=== PATIENT | female | born 1950 | race Caucasian/White ===

== ENCOUNTER → 2017-10-14 | Outpatient (CLI) | payer MEDICARE, BC ==
--- NOTE | 2017-10-18 08:10 | MM ---
Reason for exam: screening (asymptomatic). History: Patient is nulliparous. Family history of breast cancer in mother at age 84. Physical Findings: A clinical breast exam by your physician is recommended on an annual basis and results should be correlated with mammographic findings. MG 3D Screening Mammo W/Cad Bilateral CC and MLO view(s) were taken. The breast tissue is heterogeneously dense. This may lower the sensitivity of mammography. Asymmetric breast tissue in the left breast is stable. There is no discrete abnormality. Left skin lesion. ASSESSMENT: Benign, BI-RAD 2 RECOMMENDATION: Routine screening mammogram of both breasts in 1 year.
== END | disposition home or self-care (01) ==
LOC: RADMAMWWP 09:11
PROVIDERS: ATTEND Family Medicine
DX: Z12.31 Encounter for screening mammogram for malignant neoplasm of breast (principal)
CPT/HCPCS: 77063; 77067

== ENCOUNTER → 2018-11-27 | Outpatient (CLI) | payer MEDICARE, BC ==
--- NOTE | 2018-11-27 14:31 | MM ---
Reason for exam: screening (asymptomatic). Last mammogram was performed 1 year and 1 month ago. History: Patient is nulliparous. Family history of breast cancer in mother at age 84. Physical Findings: A clinical breast exam by your physician is recommended on an annual basis and results should be correlated with mammographic findings. MG 3D Screening Mammo W/Cad Bilateral CC and MLO view(s) were taken. Prior study comparison: October 14, 2017, bilateral MG 3d screening mammo w/cad. There are scattered fibroglandular densities. There is chronic nodularity in the left breast. No significant changes when compared with prior studies. ASSESSMENT: Benign, BI-RAD 2 RECOMMENDATION: Routine screening mammogram of both breasts in 1 year.
== END | disposition home or self-care (01) ==
LOC: RADMAMWWP 08:31
PROVIDERS: ATTEND Family Medicine
DX: Z12.31 Encounter for screening mammogram for malignant neoplasm of breast (principal)
CPT/HCPCS: 77063; 77067

== ENCOUNTER → 2020-01-25 | Outpatient (CLI) | payer MEDICARE, BC ==
--- NOTE | 2020-01-25 13:51 | BD ---
EXAMINATION TYPE: Axial Bone Density DATE OF EXAM: 01/25/2020 COMPARISON: NONE CLINICAL HISTORY: Postmenopausal female Height: 64 Weight: 218.2 FRAX RISK QUESTIONS: Alcohol (3 or more units per day): no Family History (Parent hip fracture): yes mother Glucocorticoids (More than 3mos): no (Ex: prednisone, prednisolone, methylprednisolone, dexamethasone, and hydrocortisone). History of Fracture in Adulthood: no Secondary Osteoporosis: 1. Type 1 Diabetes: no 2. Hyperthyroidism: no 3. Menopause before 45: no 4. Malnutrition: no 5. Chronic liver disease: no Rheumatoid Arthritis: no Current Tobacco Use: no RISK FACTORS HISTORY OF: Family History of Osteoporosis: no Active: yes Diet low in dairy products/other sources of calcium: yes Postmenopausal woman: hysterectomy 1991 Lost more than 2 inches in height since high school: no MEDICATIONS: blood pressure meds Thyroid Medications: thyroid How Lon years Additional History: EXAM MEASUREMENTS: Bone mineral densitometry was performed using the [employer] Ultrac[employer]) System. Bone mineral density as measured about the Lumbar spine is: ----- L1-L4(G/cm2): 1.464 T Score Values are as follows: ----- L2: 2.1 ----- L3: 3.6 ----- L4: 2.6 ----- L1-L4: 2.4 Bone mineral density : baseline Bone mineral density about the R hip (g/cm2): 0.808 Bone mineral density about the L hip (g/cm2): 0.786 T Score values are as follows: -----R Neck: -1.7 -----L Neck: -1.8 -----R Total: -1.0 -----L Total: -0.8 Bone mineral density : baseline IMPRESSION: Osteopenia (T Score between -2.5 and -1). There is slightly increased risk of fracture and the patient may be considered for treatment. Re-Screen 2-5 years. NOTE: T-SCORE=SD OF THE YOUNG ADULT MEAN.
== END | disposition home or self-care (01) ==
LOC: RADBDWWP 09:06
PROVIDERS: ATTEND Family Medicine
DX: M85.80 Other specified disorders of bone density and structure, unspecified site (principal)
CPT/HCPCS: 77080

== ENCOUNTER → 2020-11-17 | Outpatient (CLI) | payer MEDICARE, BC ==
--- NOTE | 2020-11-19 14:54 | MM ---
Reason for exam: screening (asymptomatic). Last mammogram was performed 2 years ago. History: Patient is postmenopausal and is nulliparous. Family history of breast cancer in mother at age 84. Took estrogen for 6 years. Physical Findings: A clinical breast exam by your physician is recommended on an annual basis and results should be correlated with mammographic findings. MG 3D Screening Mammo W/Cad Bilateral CC and MLO view(s) were taken. Prior study comparison: November 27, 2018, bilateral MG 3d screening mammo w/cad. October 14, 2017, bilateral MG 3d screening mammo w/cad. There are scattered fibroglandular densities. No significant changes when compared with prior studies. ASSESSMENT: Benign, BI-RAD 2 RECOMMENDATION: Routine screening mammogram of both breasts in 1 year.
== END | disposition home or self-care (01) ==
LOC: RADMAMWWP 07:52
PROVIDERS: ATTEND Family Medicine
DX: Z12.31 Encounter for screening mammogram for malignant neoplasm of breast (principal); Z78.0 Asymptomatic menopausal state; Z80.3 Family history of malignant neoplasm of breast
CPT/HCPCS: 77063; 77067

== ENCOUNTER 2021-03-30 10:14 | Emergency (ER) | payer MEDICARE, BC ==
--- NOTE | 2021-03-30 12:49 | ED ---
General Adult HPI - General Chief complaint: Recheck/Abnormal Lab/Rx Stated complaint: Covid, sent by PCP, Fever, cough Time Seen by Provider: 03/30/21 12:37 Source: patient, RN notes reviewed, old records reviewed Mode of arrival: ambulatory Limitations: no limitations - History of Present Illness Initial comments: 70-year-old female presenting for monoclonal antibody therapy. Patient tested positive for coronavirus on Tuesday. She's had symptoms for 5 days. She was vaccinated in June and July of this year. Patient is having mild respir atory symptoms, cough, fever, no significant dyspnea. She has a poor appetite but has been drinking well. She does have a pulse oximeter at home. - Related Data Previous Rx's Medication Instructions Recorded methylPREDNISolone Dose Pack 4 mg PO DIRECTED #21 packet 03/30/21 [Medrol Dose Pack] Review of Systems ROS Statement: Those systems with pertinent positive or pertinent negative responses have been documented in the HPI. ROS Other: All systems not noted in ROS Statement are negative. Past Medical History Past Medical History: Hypertension History of Any Multi-Drug Resistant Organisms: None Reported Past Surgical History: Hysterectomy, Orthopedic Surgery Past Psychological History: No Psychological Hx Reported Smoking Status: Never smoker Past Alcohol Use History: None Reported Past Drug Use History: None Reported General Exam Limitations: no limitations General appearance: alert, in no apparent distress Head exam: Present: atraumatic, normocephalic Eye exam: Present: normal appearance, PERRL ENT exam: Present: normal exam Neck exam: Present: normal inspection. Absent: tenderness, meningismus Respiratory exam: Present: normal lung sounds bilaterally. Absent: respiratory distress, wheezes Cardiovascular Exam: Present: regular rate, normal rhythm GI/Abdominal exam: Present: soft. Absent: distended, tenderness Extremities exam: Present: normal inspection, normal capillary refill. Absent: pedal edema Neurological exam: Present: alert, oriented X3, CN II-XII intact. Absent: motor sensory deficit Psychiatric exam: Present: normal affect, normal mood Skin exam: Present: warm, dry, intact. Absent: cyanosis, diaphoretic Course Vital Signs 03/30/21 12:28 Temperature 100.4 F H Pulse Rate 83 Respiratory 18 Rate Blood Pressure 166/88 O2 Sat by Pulse 96 Oximetry Medical Decision Making - Medical Decision Making 70-year-old female presenting for monoclonal antibody therapy. Patient well- appearing she is not hypoxic she has a low-grade fever. She is administered monoclonal antibodies in the emergency department. She is also prescribed short course of steroids. She is currently taking supplements including vitamin D, zinc, vitamin C. Return parameters discussed including monitoring pulse oximetry which she is able to do at home. Disposition Clinical Impression: COVID-19 Disposition: HOME SELF-CARE Condition: Good Instructions (If sedation given, give patient instructions): Coronavirus Disease 2019 (COVID-19) Prescriptions: methylPREDNISolone Dose Pack [Medrol Dose Pack] 4 mg PO DIRECTED #21 packet Is patient prescribed a controlled substance at d/c from ED?: No Referrals: Charu Pisano MD [Primary Care Provider] - 1-2 days
[2021-03-30 13:09] VITALS: BP 131/70; PULSE 75; RESP 20
[2021-03-30] MEDS ORDERED: CASIRIVIMAB (REGN10933) (EUA) 600 MG, IMDEVIMAB (REGN10987) (EUA) 600 MG in SODIUM CHLO... IVPB ONE (13:30)
[2021-03-30] MEDS ORDERED: SODIUM CHLORIDE 0.9% 50 ML IVPB ONE (14:00)
[2021-03-30 15:28] VITALS: TEMP 99.1
== END 2021-03-30 15:18 | disposition home or self-care (01) ==
LOC: EC 10:14
DX: U07.1 COVID-19 (principal); I10 Essential (primary) hypertension; Z90.710 Acquired absence of both cervix and uterus
CPT/HCPCS: 96361; 99283

== ENCOUNTER 2021-08-26 08:20 | Day surgery (SDC) | payer MEDICARE, BC ==
[2021-08-25 09:01] VITALS: BMI 36.6
[~2021-08-26 08:20] MED LIST: LIDOCAINE 1% (10MG/ML) FOR IV START INTRADERMA PRN
[2021-08-26 09:15] VITALS: TEMP 98.1
[2021-08-26] MEDS: LACTATED RINGERS 1,000 ML IV SCH ×2 (09:15→09:16)
[2021-08-26] MEDS ORDERED: PROPOFOL 10 MG/ML 20 ML VIAL IV ONE (10:32)
--- NOTE | 2021-08-26 10:53 | P.PCN ---
Date of Procedure: 08/26/21 Procedure(s) Performed: BRIEF HISTORY: Patient is a 70-year-old pleasant white female scheduled for an elective colonoscopy as a part of positive cologuard. PROCEDURE PERFORMED: Colonoscopy with biopsy. PREOPERATIVE DIAGNOSIS: Positive cologuard. IV sedation per Anesthesia. PROCEDURE: After informed consent was obtained, the patient, was brought into the endoscopy unit. IV sedation was administered by Anesthesia under continuous monitoring. Digital rectal examination was normal. Initially the Olympus CF-160 flexible video pediatric colonoscope was then inserted in the rectum, gradually advanced into the cecum with hvxa-bj-[id number] difficulty. Careful examination was performed as the scope was gradually being withdrawn. Ileocecal valve and the appendiceal orifice were visualized and appeared normal. Prep was good.. Mucosa of the cecum, ascending colon, transverse colon, descending colon, appeared normal. The sigmoid colon there was a 3 mm sessile polyp removed by cold biopsy. There were scattered sigmoid diverticulosis seen. Rest of the sigmoid colon, and rectum appeared normal. Retroflexion was performed in the rectum and no lesions were seen. The patient tolerated the procedure well. IMPRESSION: 3 mm sigmoid: Polyp status post cold biopsy Scattered sigmoid diverticulosis RECOMMENDATIONS: Findings of this examination were discussed with the patient as well as a her family. She was advised to follow with the biopsy results. If the biopsy results, she can have a repeat colonoscopy in 5 years.
[2021-08-26 11:03] VITALS: BP 144/72; PULSE 79
[2021-08-26 11:17] VITALS: RESP 16
== END 2021-08-26 11:40 | disposition home or self-care (01) ==
LOC: ORWHC2ENDO 08:20
PROVIDERS: ATTEND Internal Medicine Gastroenterology
DX: K63.5 Polyp of colon (principal); K57.30 Diverticulosis of large intestine without perforation or abscess without bleeding; I10 Essential (primary) hypertension; E07.9 Disorder of thyroid, unspecified; K21.9 Gastro-esophageal reflux disease without esophagitis; Z79.890 Hormone replacement therapy; Z79.899 Other long term (current) drug therapy
CPT/HCPCS: 88305; 45380; J2704

== ENCOUNTER 2022-02-24 17:52 | Emergency (ER) | payer MEDICARE, BC ==
[2022-02-24 18:03] VITALS: RESP 16; TEMP 97.5
[2022-02-24] MEDS ORDERED: LIDOCAINE 1% INJ 10MG/ML (20 ML MDV) SQ ONE (18:14)
[2022-02-24] MEDS ORDERED: DIPH,PERTUS(ACELL)TETVAC-LF 0.5 ML VIAL IM ONE (18:14)
--- NOTE | 2022-02-24 19:24 | ED ---
Wound/Laceration HPI - General Chief Complaint: Wound/Laceration Stated Complaint: finger lac Time Seen by Provider: 02/24/22 18:08 Source: patient Mode of arrival: ambulatory Limitations: no limitations - History of Present Illness Initial Comments: This is a 71-year-old female who presents with left pinky laceration. Patient states she was cutting a red bull and axilla cut her finger with a knife. Last tetanus unknown. Patient reports minimal pain. Denies numbness and tingling. - Related Data Home Medications Medication Instructions Recorded Confirmed Benazepril HCl 20 mg PO BID 08/25/21 08/26/21 Eye Vitamin 1 tab PO DAILY 08/25/21 08/26/21 Famotidine 20 mg PO BID 08/25/21 08/26/21 Fish Oil/Dha/Epa [Fish Oil 1,200 2 each PO QAM 08/25/21 08/26/21 mg Fish Oil] Levothyroxine Sodium [Synthroid] 175 mcg PO QAM 08/25/21 08/26/21 Multivitamins, Thera [Multivitamin 1 tab PO DAILY 08/25/21 08/26/21 (formulary)] clonazePAM 1 mg PO HS 08/25/21 08/26/21 Allergies Allergy/AdvReac Type Severity Reaction Status Date / Time No Known Allergies Allergy Verified 02/24/22 18:03 Review of Systems ROS Statement: Those systems with pertinent positive or pertinent negative responses have been documented in the HPI. ROS Other: All systems not noted in ROS Statement are negative. Past Medical History Past Medical History: GERD/Reflux, Hypertension, Thyroid Disorder History of Any Multi-Drug Resistant Organisms: None Reported Past Surgical History: Hysterectomy, Orthopedic Surgery Additional Past Surgical History / Comment(s): Bilateral partial knee replacements. Past Anesthesia/Blood Transfusion Reactions: No Reported Reaction Past Psychological History: No Psychological Hx Reported Smoking Status: Never smoker Past Alcohol Use History: Occasional Past Drug Use History: None Reported - Past Family History Mother Family Medical History: No Reported History General Exam Limitations: no limitations General appearance: alert Head exam: Present: atraumatic, normocephalic, normal inspection Respiratory exam: Present: normal lung sounds bilaterally. Absent: respiratory distress, wheezes, rales, rhonchi, stridor Cardiovascular Exam: Present: regular rate, normal rhythm, normal heart sounds. Absent: systolic murmur, diastolic murmur, rubs, gallop, clicks Extremities exam: Present: other (1 cm flap laceration over left pinky ) Neurological exam: Present: alert, oriented X3, CN II-XII intact Psychiatric exam: Present: normal affect, normal mood Skin exam: Present: warm, dry, intact, normal color. Absent: rash Course Vital Signs 02/24/22 02/24/22 18:01 19:58 Temperature 97.5 F L Pulse Rate 90 76 Respiratory 16 16 Rate Blood Pressure 149/62 124/68 O2 Sat by Pulse 96 98 Oximetry Procedures - Laceration Laceration #1 Indication: laceration Site: other (left pinkt) Description: flap Depth: simple, single layer Anesthetic Used: lidocaine 1% Anesthesia Technique: nerve block Pre-repair: wound explored, irrigated extensively Type of Sutures: nylon Size of Sutures: 5-0 Number of Sutures: 3 Technique: simple, interrupted Patient Tolerated Procedure: well, no complications Medical Decision Making - Medical Decision Making This is a 71-year-old female presents with laceration. Left pinky laceration well approximated with 3 sutures. Wound care instruction provided in detail. Tetanus updated. Dr. Jackson is my attending . Disposition Clinical Impression: Laceration Disposition: HOME SELF-CARE Condition: Good Instructions (If sedation given, give patient instructions): Care For Your Stitches (ED), Laceration (ED) Additional Instructions: Leave wound uncovered. Keep wound clean and dry. Wash with a mild soap. Take Tylenol or anti-inflammatories such as Motrin for pain. Follow-up with primary care provider in 1-2 days. Return for suture removal in 7-10 days. Report back to the emergency department if you experience new, concerning, or worsening symptoms. Is patient prescribed a controlled substance at d/c from ED?: No Referrals: Charu Pisano MD [Primary Care Provider] - 1-2 days Time of Disposition: 19:24
[2022-02-24 19:59] VITALS: BP 124/68; PULSE 76
== END 2022-02-24 19:57 | disposition home or self-care (01) ==
LOC: EC 17:52
DX: S61.217A Laceration without foreign body of left little finger without damage to nail, initial encounter (principal); K21.9 Gastro-esophageal reflux disease without esophagitis; I10 Essential (primary) hypertension; E07.9 Disorder of thyroid, unspecified; Z79.890 Hormone replacement therapy; Z79.899 Other long term (current) drug therapy; W26.0XXA Contact with knife, initial encounter
CPT/HCPCS: 12001; 90471; 99282; 90715; J2001

== ENCOUNTER 2022-06-13 15:14 | Inpatient (IN) | payer MEDICARE, BC ==
[2022-06-13] MEDS ORDERED: NITROGLYCERIN SL TABS 0.4 MG TAB SUBLINGUAL STA (15:21)
[2022-06-13] MEDS ORDERED: HEPARIN SODIUM 1,000 UN/ML (10ML VL) IV ONE (15:21)
--- NOTE | 2022-06-13 15:26 | ED ---
Chest Pain HPI - General Stated Complaint: Chest Pain Time Seen by Provider: 06/13/22 15:14 Source: patient, EMS, RN notes reviewed Mode of arrival: EMS - History of Present Illness Initial Comments: 71-year-old female with a history of hypertension but no prior history of heart disease or started developing chest pain this morning which got worse in the last 30 minutes or so prior to contact by EMS. Pain was 7/10 severity and burning going down the back of both arms and up into the neck. She was given 324 mg aspirin as well as nitroglycerin with some improvement. He does however state the pain is still raw 7 at this time. No shortness of breath fevers chills over nausea sweats or other symptoms no prior history of this. MD Complaint: chest pain - Related Data Home Medications Medication Instructions Recorded Confirmed Benazepril HCl 20 mg PO BID 08/25/21 06/13/22 Famotidine 20 mg PO BID 08/25/21 06/13/22 Levothyroxine Sodium [Synthroid] 175 mcg PO DAILY 08/25/21 06/13/22 clonazePAM 1 mg PO HS 08/25/21 06/13/22 Halobetasol Propionate [Ultravate 1 applic TOPICAL DAILY 06/13/22 06/13/22 0.05%] Ketoconazole 2% Cream [Nizoral 2%] 1 applic TOPICAL DAILY 06/13/22 06/13/22 Naproxen Sodium [Aleve] 220 mg PO DAILY 06/13/22 06/13/22 Sertraline [Zoloft] 50 mg PO DAILY 06/13/22 06/13/22 Allergies Allergy/AdvReac Type Severity Reaction Status Date / Time No Known Allergies Allergy Verified 06/13/22 18:31 Review of Systems ROS Statement: Those systems with pertinent positive or pertinent negative responses have been documented in the HPI. ROS Other: All systems not noted in ROS Statement are negative. EKG Findings - EKG Results: EKG: interpreted by HITESH, sinus rhythm (EKG interpreted by me upon admission to the emergency department sinus rhythm of 87 [place] interval 169 QRS duration 88 QT since QTC 356/[address] configuration) Past Medical History Past Medical History: GERD/Reflux, Hypertension, Thyroid Disorder History of Any Multi-Drug Resistant Organisms: None Reported Past Surgical History: Hysterectomy, Orthopedic Surgery Additional Past Surgical History / Comment(s): Bilateral partial knee replacements. Past Anesthesia/Blood Transfusion Reactions: No Reported Reaction Past Psychological History: No Psychological Hx Reported Smoking Status: Never smoker Past Alcohol Use History: Occasional Past Drug Use History: None Reported - Past Family History Mother Family Medical History: No Reported History General Exam - General Exam Comments Initial Comments: This is a well-developed well-nourished awake alert oriented 4 female General appearance: alert, anxious Head exam: Present: atraumatic, normocephalic, normal inspection Eye exam: Present: normal appearance, PERRL, EOMI. Absent: scleral icterus, conjunctival injection, periorbital swelling ENT exam: Present: normal exam, mucous membranes moist Neck exam: Present: normal inspection, full ROM, other (No stridor daily or bruits). Absent: tenderness, meningismus, lymphadenopathy Respiratory exam: Present: normal lung sounds bilaterally. Absent: respiratory distress, wheezes, rales, rhonchi, stridor Cardiovascular Exam: Present: regular rate, normal rhythm, normal heart sounds. Absent: systolic murmur, diastolic murmur, rubs, gallop, clicks GI/Abdominal exam: Present: soft, normal bowel sounds. Absent: distended, tenderness, guarding, rebound, rigid, bruit, pulsatile mass Extremities exam: Present: normal inspection, full ROM, normal capillary refill. Absent: tenderness, pedal edema, joint swelling, calf tenderness Back exam: Present: normal inspection Neurological exam: Present: alert, oriented X3, CN II-XII intact Psychiatric exam: Present: normal affect, normal mood Skin exam: Present: warm, dry, intact, normal color. Absent: rash Course Vital Signs 06/13/22 06/13/22 15:16 19:00 Temperature 98.3 F 98.4 F Pulse Rate 86 78 Respiratory 18 16 Rate Blood Pressure 170/92 146/71 O2 Sat by Pulse 97 97 Oximetry - Reevaluation(s) Reevaluation #1: 06/13/22 20:20 Reevaluation patient reveals no further pain at this time Chest Pain MDM - MDM Imaging interpreted by me shows no acute findings. This includes x-ray and CT to rule out pulmonary embolism. I did discuss findings with the patient family members were present patient presentation appears be consistent with new onset of unstable angina. Patient will be admitted with consultation by cardiology in the a.m. I did discuss case with Tomasa gallagher for Dr. Burciaga Was pt. sent in by a medical professional or institution (, PA, HISTOPATHOLOGY TECHNICIAN, urgent care, hospital, or usp...) When possible be specific @ -No Did you speak to anyone other than the patient for history (EMS, parent, family, police, friend...)? What history was obtained from this source @ -No Did you review nursing and triage notes (agree or disagree)? Why? @ Yes and agree-I reviewed and agree with nursing and triage notes Were old charts reviewed (outside hosp., previous admission, EMS record, old EKG, old radiological studies, urgent care reports/EKG's, usp records)? Report findings @ He has no old EKG records-No old charts were reviewed Differential Diagnosis (chest pain, altered mental status, abdominal pain women, abdominal pain men, vaginal bleeding, weakness, fever, dyspnea, syncope, headache, dizziness, GI bleed, back pain, seizure, CVA, palpatations, mental health)? @ Chest pain secondary to chest wall pain and pulmonary etiology ACLS-not applicable EKG interpreted by me (3pts min.). @ Yes -As above X-rays interpreted by me (1pt min.). @ Yes-None done CT interpreted by me (1pt min.). @ Yes-None done U/S interpreted by me (1pt. min.). @ -None done What testing was considered but not performed or refused? (CT, X-rays, U/S, labs)? Why? @ -None What meds were considered but not given or refused? Why? @ -None Did you discuss the management of the patient with other professionals (professionals i.e. , AYDE, HISTOPATHOLOGY TECHNICIAN, lab, RT, psych nurse, social service manager, instruction dean, teacher, money position officer, piano case and bench assembler)? Give summary @ Yes Sraa Scanlon covering for Dr. Martinez-No Was smoking cessation discussed for >3mins.? @ -No Was critical care preformed (if so, how long)? @ Yes 31 minutes-No Were there social determinants of health that impacted care today? How? (Homelessness, low income, unemployed, alcoholism, drug addiction, transportation, low edu. Level, literacy, decrease access to med. care, care home, rehab)? @ -No Was there de-escalation of care discussed even if they declined (Discuss DNR or withdrawal of care, Hospice)? DNR status @ -No What co-morbidities impacted this encounter? (DM, HTN, Smoking, COPD, CAD, Cancer, CVA, ARF, Chemo, Hep., AIDS, mental health diagnosis, sleep apnea, morbid obesity)? @ -None Was patient admitted / discharged? Hospital course, mention meds given and route, prescriptions, significant lab abnormalities, going to OR and other pertinent info. @ Patient was admitted-hospital course Undiagnosed new problem with uncertain prognosis? @ -No Drug Therapy requiring intensive monitoring for toxicity (Heparin, Nitro, Insulin, Cardizem)? @ Heparin, nitroglycerin - Were any procedures done? @ -No Diagnosis/symptom? @ Unstable angina, chest pain-default Acute, or Chronic, or Acute on Chronic? @ -default Uncomplicated (without systemic symptoms) or Complicated (systemic symptoms)? @ -default Side effects of treatment? @ -No Exacerbation, Progression, or Severe Exacerbation? @ -No Poses a threat to life or bodily function? How? (Chest pain, [place], MS, pneumonia, PE, COPD, DKA, ARF, appy, cholecystitis, CVA, Diverticulitis, Homicidal, Suicidal, threat to staff... and all critical care pts) @ Potential if not further evaluated and treated -n. Critical Care Time Critical Care Time: Yes Total Critical Care Time: 31 Critical Care Time: Critical care time includes initial presentation with history physical discussed with paramedics on arrival multiple repeat evaluations the patient discussed with patient and family and several occasions discussion with the admitting service admission orders and documentation of the above Disposition Clinical Impression: Chest pain, Unstable angina pectoris Disposition: ADMITTED IP TO THIS HOSP Condition: Fair Referrals: Charu Pisano MD [Primary Care Provider] - 1-2 days Decision Date: 06/13/22 Decision Time: 20:00
[2022-06-13] MEDS ORDERED: HEPARIN SOD,PORK IN 0.45% NACL 25,000 UNIT in 0.45% NACL 1 250ML.BAG IV SCH (15:30)
--- NOTE | 2022-06-13 16:21 | XR ---
EXAMINATION TYPE: XR chest 2V DATE OF EXAM: 06/13/2022 4:14 PM COMPARISON: None. TECHNIQUE: XR chest 2V . CLINICAL INDICATION:Female, 71 years old with history of Chest Pain; FINDINGS: Lungs/Pleura: There is no evidence of pleural effusion, focal consolidation, or pneumothorax. Pulmonary vascularity: Unremarkable. Heart/mediastinum: Cardiomediastinal silhouette is unremarkable. Musculoskeletal: Multiple level degenerative disc disease changes seen throughout the spine. No acute osseous abnormalities. IMPRESSION: No acute cardiopulmonary disease/process.
[2022-06-13 16:37] LABS: Basophils # (A) 0.1 k/uL (0-0.2); Basophils % (A) 1 %; Eosinophils # (A) 0.4 k/uL (0-0.7); Eosinophils % (A) 4 %; HCT 40.5 % (34.0-46.0); HGB 13.8 gm/dL (11.4-16.0); Lymphocytes # (A) 1.3 k/uL (1.0-4.8); Lymphocytes % (A) 16 %; MCH 33.2 pg (25.0-35.0); MCV 97.4 fL (80.0-100.0); Mean Platelet Volume 8.7; Monocytes # (A) 0.5 k/uL (0-1.0); Monocytes % (A) 7 %; Neutrophils # (A) 5.6 k/uL (1.3-7.7); Neutrophils % (A) 70 %; Platelet Count 256 k/uL (150-450); RBC 4.16 m/uL (3.80-5.40); RDW 12.3 % (11.5-15.5); WBC 7.9 k/uL (3.8-10.6)
[2022-06-13 16:47] LABS: Albumin 4.1 g/dL (3.5-5.0); Calcium 8.7 mg/dL (8.4-10.2); Total Bilirubin 0.6 mg/dL (0.2-1.3)
[2022-06-13 16:51] LABS: Magnesium 1.9 mg/dL (1.6-2.3); Potassium 4.7 mmol/L (3.5-5.1)
[2022-06-13 17:17] LABS: INR 0.9 (<1.2); Partial Thromboplastin Time 24.8 sec (22.0-30.0); Prothrombin Time 9.8 sec (9.0-12.0)
[2022-06-13] MEDS ORDERED: SODIUM CHLORIDE 0.9% 1,000 ML IV STA (17:47)
--- NOTE | 2022-06-13 20:00 | CT ---
EXAMINATION TYPE: CT angio chest CT DLP: 536.4 mGycm, Automated exposure control for dose reduction was used. DATE OF EXAM: 06/13/2022 7:27 PM COMPARISON: Chest radiograph from same day. CLINICAL INDICATION:Female, 71 years old with history of PE suspected; Chest pain. Bilateral arm Pain . PE suspected. TECHNIQUE/CONTRAST: CTA scan of the thorax is performed with IV Contrast, patient injected with 80cc mL of Isovue 370, pu lmonary embolism protocol. MIP images are created and reviewed. FINDINGS: Pulmonary Artery: There is no evidence for a filling defect within the pulmonary vasculature to sugge st acute pulmonary embolism. The pulmonary artery is of normal size. Lungs/Pleura: No evidence of focal consolidation, pleural effusion or pneumothorax. Left basilar atel ectasis. Airway: Large airways are patent. Heart: Heart is within normal limits for size.. Vasculature: Mild atherosclerotic calcifications are present throughout the aorta and its branches. Mediastinum: No gross evidence of adenopathy. Musculoskeletal: Mild degenerative disc disease changes are present throughout the thoracolumbar spin e. Mild degenerative changes of the lower cervical spine. Soft Tissues: Unremarkable. Lower neck: No significant findings. Upper Abdomen: Hepatic steatosis. Nonobstructing left renal calculi. Colonic diverticulosis.. IMPRESSION: 1. No evidence of pulmonary embolism. 2. No acute cardiopulmonary process. 3. Additional incidental findings as detailed above.
[2022-06-13] MEDS ORDERED: NITROGLYCERIN SL TABS 0.4 MG TAB SUBLINGUAL PRN (20:25)
[2022-06-13] MEDS: clonazePAM 1 MG TAB PO SCH (21:49)
[2022-06-13] MEDS: FAMOTIDINE 20 MG TAB PO SCH (21:49)
[2022-06-14] MEDS: NITROGLYCERIN OINT 1 INCH/GM PACKET TOPICAL SCH ×2 (00:24→05:35)
[2022-06-14] MEDS ORDERED: NITROGLYCERIN OINT 1 INCH/GM PACKET TOPICAL STA (01:10)
[2022-06-14] MEDS: METOPROLOL TARTRATE 25 MG TAB PO SCH ×3 (01:26→21:05)
[2022-06-14] MEDS: MORPHINE SULFATE 2 MG/ML SYRINGE IVP PRN ×2 (02:34→06:40)
[2022-06-14] MEDS ORDERED: HEPARIN SODIUM 1,000 UN/ML (10ML VL) IV PRN (05:20)
[2022-06-14] MEDS: LEVOTHYROXINE 88 MCG TAB PO SCH (05:35)
[2022-06-14] MEDS ORDERED: HEPARIN SODIUM,PORCINE 2,500 UNIT in SODIUM CHLORIDE 0.9% 250 ML IRRIGATION PRN (07:00)
[2022-06-14] MEDS ORDERED: HEPARIN SODIUM,PORCINE 10,000 UNIT in SODIUM CHLORIDE 0.9% 1,000 ML IRRIGATION PRN (07:00)
[2022-06-14] MEDS ORDERED: ASPIRIN 325 MG TAB PO STA (08:45)
[2022-06-14] MEDS ORDERED: ALPRAZolam 0.5 MG TAB PO PRN (08:45)
[2022-06-14] MEDS ORDERED: ATORVASTATIN 80 MG TAB PO STA (08:45)
[2022-06-14] MEDS ORDERED: NITROGLYCERIN SL TABS 0.4 MG TAB SUBLINGUAL PRN ×2 (08:45→10:24)
[2022-06-14] MEDS ORDERED: ALPRAZolam 0.25 MG TAB PO PRN (08:45)
[2022-06-14] MEDS ORDERED: SODIUM CHLORIDE 0.9% 500 ML 200 ML IV ONE (08:47)
[2022-06-14] MEDS ORDERED: NAPROXEN 250 MG TAB PO SCH (09:00)
[2022-06-14] MEDS ORDERED: lisinopriL 20 MG TAB PO SCH (09:00)
[2022-06-14] MEDS ORDERED: ASPIRIN 325 MG TAB PO SCH (09:00)
[2022-06-14 09:02] LABS: Chol/HDL Ratio 4.12 Ratio; LDL Cholesterol,Calculated 136.6 mg/dL (0.0-131.0)
[2022-06-14] MEDS: MIDAZOLAM 2 MG/2 ML VIAL IVP ONE ×2 (09:30→09:36)
[2022-06-14] MEDS ORDERED: SODIUM CHLORIDE 0.9% 1,000 ML IV ONE (09:30)
[2022-06-14] MEDS ORDERED: LIDOCAINE 1% INJ 10MG/ML (5 ML VIAL-PF) SQ ONE (09:34)
[2022-06-14] MEDS ORDERED: VERAPAMIL SYRINGE (5 MG/10 ML) INTRAARTER ONE (09:35)
[2022-06-14] MEDS ORDERED: fentaNYL (PF) 50 MCG/ML 2 ML AMP IVP ONE (09:42)
[2022-06-14] MEDS: HEPARIN SODIUM 1,000 UN/ML (10ML VL) IVP ONE ×2 (09:55→10:14)
[2022-06-14] MEDS ORDERED: TICAGRELOR 90 MG TAB PO ONE (10:13)
[2022-06-14] MEDS ORDERED: NITROGLYCERIN 1000MCG/10ML SYRINGE INTRAARTER ONE (10:15)
[2022-06-14] MEDS ORDERED: IOPAMIDOL-370 125ML BTL INJ ONE (10:16)
[2022-06-14] MEDS ORDERED: IOPAMIDOL-370 100ML BTL INJ ONE (10:20)
[2022-06-14] MEDS ORDERED: ATROPINE SULFATE 0.1 MG/ML 10ML SYRINGE IV PRN (10:24)
[2022-06-14] MEDS ORDERED: RX INFO: IV CONTRAST WAS GIVEN 1 EACH MISC MISCELLANE PRN (10:24)
[2022-06-14] MEDS ORDERED: ZOLPIDEM 5 MG TAB PO PRN (10:24)
[2022-06-14] MEDS ORDERED: MAG HYDROX/AL HYDROX/SIMETH 30 ML CUP PO PRN (10:24)
[2022-06-14] MEDS: SODIUM CHLORIDE 0.9% 1,000 ML in EMPTY BAG 1 BAG IV SCH ×2 (11:00→21:03)
[2022-06-14] MEDS: SERTRALINE 50 MG TAB PO SCH (11:01)
--- NOTE | 2022-06-14 13:10 | CONS ---
CONSULTATION HISTORY OF PRESENT ILLNESS: Ms. Vaughn is a 71-year-old lady, has a history of hypertension and hypothyroidism. She takes benazepril 20 mg b.i.d. and Synthroid 175 mcg _daily____. She is not a smoker, has no diabetes, and cholesterol status is unknown. She came into the hospital around 3 p.m. yesterday complaining of chest pressure that seemed to be midsternal, and this was coming and going, was very waxing and waning for at least 24 hours prior to her presentation to the ER. She had a prolonged discomfort in the chest, came into the emergency room. Initial troponin was normal. She was placed on heparin and nitroglycerin paste. Subsequent troponins have gone up. Her chest pain has improved, but this morning again, she had chest tightness and pressure, and EKG revealed precordial ST-T wave changes suggestive of an anterior hhj-WV-[id number] TN. At the time of my evaluation, she is resting comfortably and had mild chest discomfort, probably 15 to 20 minutes ago, and precordial ST changes were noted with elevated troponin suggestive of a [id number]-HB-bfbllhqek TN. PAST MEDICAL HISTORY: 1. Hypertension. 2. Hypothyroidism. 3. Status post orthopedic surgery and hysterectomy. 4. She has bilateral partial knee arthroplasty done. MEDICATIONS AT HOME: Include: 1. Synthroid 175 mcg _daily____. 2. Benazepril 20 mg b.i.d. 3. She also takes some Zoloft. ALLERGIES: No known drug allergies. PHYSICAL EXAMINATION: VITAL SIGNS: Blood pressure is 148/70. Pulse rate is about 70 per minute. HEENT: Unremarkable. Fundus was not examined. NECK: Supple. No JVD. I do not hear a carotid bruit. HEART: Reveals S1 and S2 heard normally. No significant murmurs. LUNGS: Reveal bilateral decent air entry. ABDOMEN: Soft and nontender. EXTREMITIES: Lower extremities reveal palpable pulses. No edema. CENTRAL NERVOUS SYSTEM: Normal. LABORATORY DATA: EKG this morning revealed a sinus mechanism with anterior ST and T-wave changes. Laboratory data reveal a creatinine of 1.24. D-dimer of 0.61. The troponin went up from 0.02 to 6.7 this morning. Her BNP is normal. Her LDL cholesterol is 136. She had a CT angiogram of the chest because of elevated D-dimer, which was unremarkable for pulmonary embolism. RECOMMENDATIONS: I am recommending that we continue heparin, hydrate her, and proceed with coronary angiography and based on finding intervention. The rationale for coronary angiography and PCI was explained to the patient in detail. She wants me to talk to her sister after the procedure. She understands the risks, benefits, options, and rationale and wishes to proceed with the procedure. She is already on beta-blockers, heparin, and nitro paste. MMODL / IJN: [id number] / OSORIO
--- NOTE | 2022-06-14 13:49 | CC ---
CARDIAC CATHETERIZATION REPORT PROCEDURES PERFORMED: 1. Coronary angiography. 2. Percutaneous transluminal coronary angioplasty and stenting of a totally-occluded mid left anterior descending performed in the setting of a pud-BO-[id number] myocardial infarction. PERFORMED BY: Dr. Betty Liu. Moderate conscious sedation time was 46 minutes. The patient was administered Versed. Oxygen saturation, hemodynamics, and EKG were monitored closely. CLINICAL INFORMATION: Ms. Alba Vaughn is a 71-year-old lady with a history of hypertension and hypothyroidism, came into the hospital with chest pain, had troponin elevation and EKG changes in the anterior leads, suggestive of anterior pmv-TQ-jjuiawhhj DC. She was advised prompt cardiac catheterization. Risks, benefits, options, and rationale were explained. PROCEDURE NOTE: Under local anesthesia and strict aseptic precautions, a 6-[place] introducer was placed in the right radial artery. I used a JR4 catheter to perform selective coronary angiography of the right coronary artery. I could not cross the aortic valve. I used a 3.5 curved left Nba 6-[place] guide catheter to perform catheterization and PCI of the left system. Following coronary angiography, I proceeded to perform PCI of LAD. Following the PCI, I took the sheath out and placed a TR band. Saturation in the fingers of the right hand was 93%. The patient tolerated the procedure well without complication. She received 180 mg of Brilinta and also 4000 units of heparin. ACT was 251, and additional 1000 units of heparin was given, a total of 4000. The patient will be on aspirin and Brilinta without interruption for 1 year. CORONARY ANGIOGRAPHY FINDINGS: RIGHT CORONARY ARTERY: Large dominant vessel, no significant disease, supplies a sizable amount of myocardium. Distally bifurcates into a large PDA and PLV, both of which have minor irregularities, no significant disease. LEFT MAIN CORONARY ARTERY: Short, patent vessel, free of significant disease, bifurcates into LAD and circumflex. LEFT ANTERIOR DESCENDING CORONARY ARTERY: This vessel is totally occluded after a small septal and a diagonal branch. 100% occlusion, culprit vessel. LEFT POSTERIOR CIRCUMFLEX CORONARY ARTERY: Nondominant vessel, gives off a single obtuse marginal and a secondary branch, has minor irregularities, no significant disease. LV-gram was not performed. FINAL IMPRESSION: This patient has a right-dominant system, total occlusion of mid left anterior descending after septal and diagonal branch. No significant disease in the circumflex or right coronary artery. RECOMMENDATIONS: PCI of mid LAD performed expeditiously. PCI PROCEDURE: I used a JL3.5 guide catheter and a Runthrough wire. I crossed the lesion and used a 2.5 NC Trek balloon to pre-dilate the lesion. I deployed a 3.5-caliber 15-mm long Xience stent. Excellent angiographic result was achieved without complication. The sheath was taken out, and TR band was applied as per protocol. The patient was sent to the room in stable condition. She received 180 mg of Brilinta and also intravenous heparin, and ACT was kept between 250 and 300. Excellent angiographic result was achieved. Details were discussed with the patient and family, and she was sent to the room in a stable condition. MMODL / IJN: [id number] /
--- NOTE | 2022-06-14 14:31 | P.HPIM ---
History of Present Illness H&P Date: 06/14/22 This is a pleasant 71-year-old female who presented to the emergency department with feelings of chest pain that had been ongoing and radiating down both upper extremities and also into her neck and called EMS for further evaluation. Patient was given aspirin and nitroglycerin and reported having some improvement in her chest pain. Patient denied any feelings of dizziness, lightheadedness, nausea or vomiting. Patient follows with Dr. Charu sexton in the outpatient setting with a past medical history of GERD, hypertension, thyroid. Patient reports she drinks wine almost daily and denies other illicit drug use or smoking. Chest x-ray in the ER showed no acute cardiopulmonary process. Tc daniel also underwent CTA showing no evidence of PE and no acute cardiopulmonary process as her d-dimer initially was mildly elevated at 0.61. Patient was placed on IV heparin and admitted for cardiology consultation in the a.m. Labs reviewed on admission showing a WBC of 7.9, hemoglobin is 13.8, platelets 256, sodium 137, potassium 4.7, creatinine 1.24, magnesium 1.9, initial troponin 0.027 with repeat troponin coming back elevated at 2.75 and third troponin was 6.72, BNP was 354, cholesterol panel reveals hyperlipidemia, lipase is 167. EKG showed normal sinus rhythm. Review Of Systems: Constitutional: No fever, no chills, no night sweats. No weight change. No weakness, fatigue or lethargy. No daytime sleepiness. EENT: No headache. No blurred vision or double vision, no loss of vision. No loss of Hearing, no ringing in the ears, no dizziness. No nasal drainage or congestion. No epistaxis. No sore throat. Lungs: No shortness of breath, cough, no sputum production. No wheezing. Cardiovascular: Reported chest pain, no lower extremity edema. No palpitations. No paroxysmal nocturnal dyspnea. No orthopnea. No lightheadedness or dizziness. No syncopal episodes. Reported bilateral upper arm pain and discomfort post symptoms of chest pain Abdominal: No abdominal pain. No nausea, vomiting. No diarrhea. No constipation. No bloody or tarry stools.. No loss of appetite. Genitourinary: No dysuria, increased frequency, urgency. No urinary retention. Musculoskeletal: No myalgias. No muscle weakness, no gait dysfunction, no frequent falls. No back pain. No neck pain. Integumentary: No wounds, no lesions. No rash or pruritus. No unusual bruising. No change in hair or nails. Neurologic: No aphasia. No facial droop. No change in mentation. No head injury. No headache. No paralysis. No paresthesia. Psychiatric: No depression. No anxiety. No mood swings. Endocrine: No abnormal blood sugars. No weight change. No excessive sweating or thirst. No cold intolerance. PHYSICAL EXAMINATION: GENERAL: The patient is alert and oriented x4, Well developed, well nourished. Obese HEENT: Pupils are round and equally reacting to light. EOMI. no scleral icterus. No conjunctival pallor. Normocephalic, atraumatic. No pharyngeal erythema. No thyromegaly. CARDIOVASCULAR: S1 and S2 muffled PULMONARY: diminished breath sounds bilaterally with no wheezing or rhonchi noted. ABDOMEN: soft. Nontender on exam. obese. non-distended, normoactive bowel soun ds. No palpable organomegaly. MUSCULOSKELETAL: No joint swelling or deformity. EXTREMITIES: No cyanosis, clubbing, or pedal edema. NEUROLOGICAL: Gross neurological examination did not reveal any focal deficits. SKIN: No rashes. Assessment: Chest pain, NSTEMI Status post stenting to the LAD Gastroesophageal reflux disease Elevated d-dimer with no evidence of PE on CTA Mild acute kidney injury, likely prerenal Hypertension history Hypothyroidism Hyperlipidemia Obesity with a body mass index of 35.3 GI prophylaxis DVT prophylaxis Full code Plan: Recommend to continue with current medications and management with cardiology following Patient had elevated troponins that were trending up and patient was maintained on telemetry with continued cardiac symptoms with cardiology following and underwent cardiac catheterization this morning and is post stenting to the mid LAD the 100% occlusion Patient is on bed rest at this time and underwent right radial approach to continue with protocol Recommend continue telemetry monitoring and will follow-up with repeat labs Continue current medications per cardiology recommendations and will discuss with cardiology about possible discharge planning in the next 24-48 hours Diet to be resumed and will follow-up with repeat labs Due to multiple complex medical issues, prognosis is guarded. Possible discharge in 24 hours. The impression and plan of care has been dictated by Fernanda Diego, nurse practitioner as directed. Dr. Anthony MD I have performed a history and examination and MDM of this patient, discussed the same with the dictator, and agree with the dictator's assessment and plan as written ,documented as a scribe. Based on total visit time, I have performed more than 50% of the visit. Any additional findings or plans will be noted. Past Medical History Past Medical History: GERD/Reflux, Hypertension, Thyroid Disorder History of Any Multi-Drug Resistant Organisms: None Reported Past Surgical History: Hysterectomy, Orthopedic Surgery Additional Past Surgical History / Comment(s): Bilateral partial knee replacements. Past Anesthesia/Blood Transfusion Reactions: No Reported Reaction Past Psychological History: No Psychological Hx Reported Smoking Status: Never smoker Past Alcohol Use History: Occasional Past Drug Use History: None Reported - Past Family History Mother Family Medical History: No Reported History Medications and Allergies Home Medications Medication Instructions Recorded Confirmed Type Benazepril HCl 20 mg PO BID 08/25/21 06/13/22 History Famotidine 20 mg PO BID 08/25/21 06/13/22 History Levothyroxine Sodium [Synthroid] 175 mcg PO DAILY 08/25/21 06/13/22 History clonazePAM 1 mg PO HS 08/25/21 06/13/22 History Halobetasol Propionate [Ultravate 1 applic TOPICAL DAILY 06/13/22 06/13/22 History 0.05%] Ketoconazole 2% Cream [Nizoral 2%] 1 applic TOPICAL DAILY 06/13/22 06/13/22 History Naproxen Sodium [Aleve] 220 mg PO DAILY 06/13/22 06/13/22 History Sertraline [Zoloft] 50 mg PO DAILY 06/13/22 06/13/22 History Allergies Allergy/AdvReac Type Severity Reaction Status Date / Time No Known Allergies Allergy Verified 06/13/22 18:31 Physical Exam Vitals: Vital Signs Temp Pulse Pulse Resp BP BP Pulse Ox 06/14/22 07:11 98 06/14/22 07:00 97.6 F 60 18 147/83 99 06/14/22 00:23 98.2 F 78 18 156/82 98 06/13/22 21:28 98.1 F 93 18 171/83 98 06/13/22 21:00 98.2 F 70 17 144/75 95 06/13/22 19:00 98.4 F 78 16 146/71 97 06/13/22 15:16 98.3 F 86 18 170/92 97 Intake and Output 06/13/22 06/14/22 06/14/22 22:59 06:59 14:59 Intake Total 119.767 Balance 119.767 Intake: Intake, IV Titration 119.767 Amount Heparin Sod,Pork in 0.45% 119.767 NaCl 25,000 unit In 0.45 % NaCl 1 250ml.bag @ 10. 399 UNITS/KG/HR 10 mls/hr IV .Q24H ELIZABETH Rx#: [id number] Other: # Voids 3 Weight 96.162 kg Results CBC & Chem 7: 06/13/22 15:25 06/13/22 15:25 Labs: Abnormal Lab Results - Last 24 Hours (Table) 06/13/22 06/13/22 06/13/22 Range/Units 15:25 15:25 22:53 APTT 71.9 H (22.0-30.0) sec D-Dimer 0.61 H (<0.60) mg/L FEU BUN 23 H (7-17) mg/dL Creatinine 1.24 H (0.52-1.04) mg/dL Glucose 114 H (74-99) mg/dL Troponin I (0.000-0.034) ng/mL Triglycerides (0.00-149.00) mg/dL Cholesterol (0.00-200.00) mg/dL LDL Cholesterol, Calc (0.0-131.0) mg/dL 06/13/22 06/14/22 06/14/22 Range/Units 22:53 03:20 03:20 APTT (22.0-30.0) sec D-Dimer (<0.60) mg/L FEU BUN (7-17) mg/dL Creatinine (0.52-1.04) mg/dL Glucose (74-99) mg/dL Troponin I 2.750 H* 6.720 H* (0.000-0.034) ng/mL Triglycerides 169.00 H (0.00-149.00) mg/dL Cholesterol 225.00 H (0.00-200.00) mg/dL LDL Cholesterol, Calc 136.6 H (0.0-131.0) mg/dL 06/14/22 Range/Units 03:20 APTT 43.4 H (22.0-30.0) sec D-Dimer (<0.60) mg/L FEU BUN (7-17) mg/dL Creatinine (0.52-1.04) mg/dL Glucose (74-99) mg/dL Troponin I (0.000-0.034) ng/mL Triglycerides (0.00-149.00) mg/dL Cholesterol (0.00-200.00) mg/dL LDL Cholesterol, Calc (0.0-131.0) mg/dL Thrombosis Risk Factor Assmnt - DVT/VTE Prophylaxis DVT/VTE Prophylaxis: Pharmacologic Prophylaxis ordered - Choose All That Apply Any of the Below Risk Factors Present?: Yes Each Factor Represents 1 point: Obesity (BMI >25) Other Risk Factors: Yes Each Risk Factor Represents 2 Points: Age 61-74 years Other congenital or acquired thrombophilia - If yes, enter type in comment: No Thrombosis Risk Factor Assessment Total Risk Factor Score: 3 Thrombosis Risk Factor Assessment Level: Moderate Risk Assessment and Plan Time with Patient: Greater than 30
[2022-06-14] MEDS: ATORVASTATIN 80 MG TAB PO SCH (21:01)
[2022-06-14] MEDS: FAMOTIDINE 20 MG TAB PO SCH (21:01)
[2022-06-14] MEDS: clonazePAM 1 MG TAB PO SCH (21:01)
[2022-06-14] MEDS: lisinopriL 10 MG TAB PO SCH (21:05)
[2022-06-15] MEDS: LEVOTHYROXINE 88 MCG TAB PO SCH (06:32)
[2022-06-15 06:39] LABS: Basophils # (A) 0.1 k/uL (0-0.2); Basophils % (A) 1 %; Eosinophils # (A) 0.3 k/uL (0-0.7); Eosinophils % (A) 3 %; HCT 36.4 % (34.0-46.0); HGB 12.2 gm/dL (11.4-16.0); Hypochromasia Slight; Lymphocytes # (A) 1.1 k/uL (1.0-4.8); Lymphocytes % (A) 14 %; MCH 33.7 pg (25.0-35.0); MCHC 33.5 g/dL (31.0-37.0); MCV 100.7 fL (80.0-100.0); Mean Platelet Volume 8.4; Monocytes # (A) 0.7 k/uL (0-1.0); Monocytes % (A) 9 %; Neutrophils # (A) 5.2 k/uL (1.3-7.7); Neutrophils % (A) 71 %; Platelet Count 196 k/uL (150-450); RBC 3.61 m/uL (3.80-5.40); RDW 12.3 % (11.5-15.5); WBC 7.4 k/uL (3.8-10.6)
[2022-06-15 06:42] LABS: African American GFR (CKD) 68 (>60 ml/min/1.73 sqM); Anion Gap 4 mmol/L; Blood Urea Nitrogen 13 mg/dL (7-17); Calcium 8.1 mg/dL (8.4-10.2); Carbon Dioxide 25 mmol/L (22-30); Chloride 108 mmol/L (98-107); Glucose 89 mg/dL (74-99); Non-African American GFR(CKD) 59 (>60 ml/min/1.73 sqM); Potassium 4.4 mmol/L (3.5-5.1); Sodium 137 mmol/L (137-145)
--- NOTE | 2022-06-15 07:53 | CA ---
Transthoracic Echo Report Name: Alba Vaughn Age: 71 Gender: F : 1950 Exam Date: 06/14/2022 10:47 Exam Location: [facility] Ht (in): 65 Wt (lb): 212 Ordering Physician: Regina Liu MD ([id number]) Attending/Referring Phys: Legal Technician Sylvie Robb RDCS Procedure CPT: Indications: Anterior NSTEMI, LAD PCI Cardiac Hx: Technical Quality: Fair Contrast 1: Total Dose (mL): Contrast 2: Total Dose (mL): MEASUREMENTS (Male / Female) Normal Values 2D ECHO LV Diastolic Diameter PLAX 4.1 cm 4.2 - 5.9 / 3.9 - 5.3 cm LV Systolic Diameter PLAX 2.5 cm IVS Diastolic Thickness 1.9 cm 0.6 - 1.0 / 0.6 - 0.9 cm LVPW Diastolic Thickness 1.5 cm 0.6 - 1.0 / 0.6 - 0.9 cm LV Relative Wall Thickness 0.8 RV Internal Dim ED PLAX 3.4 cm LV Diastolic Volume MOD BP 69.2 cm??? 67 - 155 / 56 - 104 cm??? LV Systolic Volume MOD BP 40.5 cm??? 22 - 58 / 19 - 49 cm??? LV Ejection Fraction MOD BP 41.4 % >= 55 % LV Cardiac Index MOD BP 951.3 cm???/min???m??? LV Diastolic Volume MOD 4C 78.1 cm??? LV Systolic Volume MOD 4C 55.4 cm??? LV Ejection Fraction MOD 4C 29.1 % LV Cardiac Index MOD 4C 754.0 cm???/min???m??? LV Diastolic Length 4C 6.9 cm LV Systolic Length 4C 6.4 cm LV Diastolic Volume MOD 2C 53.9 cm??? LV Systolic Volume MOD 2C 26.1 cm??? LV Ejection Fraction MOD 2C 51.5 % LV Cardiac Index MOD 2C 919.2 cm???/min???m??? LV Diastolic Length 2C 6.0 cm LV Systolic Length 2C 5.4 cm LA Volume 67.3 cm??? 18 - 58 / 22 - 52 cm??? M-MODE Aortic Root Diameter MM 3.1 cm LA Systolic Diameter MM 3.9 cm LA Ao Ratio MM 1.3 AV Cusp Separation MM 1.7 cm DOPPLER AV Peak Velocity 122.2 cm/s AV Peak Gradient 6.0 mmHg AI Peak Velocity 398.4 cm/s AI Peak Gradient 63.5 mmHg AI Pressure Half Time 882.9 ms LVOT Peak Velocity 94.4 cm/s LVOT Peak Gradient 3.6 mmHg MV Area PHT 2.9 cm??? Mitral E Point Velocity 56.4 cm/s Mitral A Point Velocity 106.5 cm/s Mitral E to A Ratio 0.5 MV Deceleration Time 263.8 ms MV E' Velocity 5.8 cm/s Mitral E to MV E' Ratio 9.7 TR Peak Velocity 251.2 cm/s TR Peak Gradient 25.2 mmHg Right Ventricular Systolic Press 30.1 mmHg FINDINGS Left Ventricle Severely increased septal wall thickness. Moderately increased posterior wall thickness. Moderately decreased left ventricular ejection fraction. Anetrior apical and anterior septal wall motion hypokinesis. Left ventricular ejection fraction is estimated at 45%. Right Ventricle Normal right ventricular size and function. Right ventricular systolic pressure within normal limits. Right Atrium Normal right atrial size. Left Atrium Moderately increased left atrial volume. Mildly increased left atrial area. Mitral Valve Structurally normal mitral valve. Mild mitral regurgitation. Aortic Valve Trileaflet aortic valve. No aortic stenosis. Mild aortic regurgitation. Tricuspid Valve Mild tricuspid regurgitation. Pulmonic Valve Trace pulmonic regurgitation. Pericardium No pericardial effusion. Aorta Normal size aortic root and proximal ascending aorta. CONCLUSIONS Normal LV size, moderate concentric LVH, hypokinesia of the mid to distal anterolateral septal and anteroapical wall of the left ventricle. Mild mitral and tricuspid insufficiency. No significant the pulmonary hypertension. Previewed by: Dr. Regina Liu MD (Electronically Signed) Final Date: 15 June 2022 07:52
[2022-06-15] MEDS ORDERED: ISOSORBIDE MONONITRATE ER 30 MG TAB.ER.24H PO SCH (09:00)
[2022-06-15] MEDS: TICAGRELOR 90 MG TAB PO SCH ×2 (09:56→19:54)
[2022-06-15] MEDS: ASPIRIN 81 MG PO SCH (09:56)
[2022-06-15] MEDS: lisinopriL 10 MG TAB PO SCH ×2 (09:57→19:54)
[2022-06-15] MEDS: METOPROLOL TARTRATE 25 MG TAB PO SCH ×2 (09:57→19:54)
[2022-06-15] MEDS: SERTRALINE 50 MG TAB PO SCH (09:57)
[2022-06-15 12:15] VITALS: BMI 35.2
--- NOTE | 2022-06-15 13:32 | PN ---
PROGRESS NOTE SUBJECTIVE: A 71-year-old lady, who presented with a non-ST elevation PA anterior wall, underwent stenting of a totally occluded LAD, doing well this morning. Right radial site is clean and dry with a good pulse. Her EKG revealed anterior T-wave inversion suggestive of recent PA. Her echocardiogram revealed ejection fraction of 45% with anteroapical septal hypokinesia. No significant abnormality on Doppler. No pericardial effusion. These findings reviewed. Advised to continue current medical regimen, increase activity, probable discharge tomorrow. I advised her that her cholesterol is elevated, she should be on dual antiplatelet therapy with aspirin and Brilinta as well as a statin agent. Probable discharge tomorrow. OBJECTIVE: VITAL SIGNS: Stable. NECK: No JVD. HEART: S1, S2 heard normally, short systolic murmur. LUNGS: Revealed decent air entry. ABDOMEN: Unchanged. LOWER EXTREMITIES: Unchanged. IMPRESSION: 1. Recent non-ST elevation myocardial infarction involving the anterior wall with ejection fraction of 45%. No heart failure. 2. Hypertension. 3. Hypothyroidism. RECOMMENDATIONS: Increase activity, plan for discharge in the a.m., and continue current medical regimen. MMODL / IJN: [id number] /
--- NOTE | 2022-06-15 18:22 | P.PN ---
Subjective Progress Note Date: 06/15/22 This is a pleasant 71-year-old female who presented to the emergency department with feelings of chest pain that had been ongoing and radiating down both upper extremities and also into her neck and called EMS for further evaluation. Patient was given aspirin and nitroglycerin and reported having some improvement in her chest pain. Patient denied any feelings of dizziness, lightheadedness, nausea or vomiting. Patient follows with Dr. Charu sexton in the outpatient setting with a past medical history of GERD, hypertension, thyroid. Patient reports she drinks wine almost daily and denies other illicit drug use or smoking. Chest x-ray in the ER showed no acute cardiopulmonary process. Patient also underwent CTA showing no evidence of PE and no acute cardiopulmonary process as her d-dimer initially was mildly elevated at 0.61. Patient was placed on IV heparin and admitted for cardiology consultation in the a.m. Labs reviewed on admission showing a WBC of 7.9, hemoglobin is 13.8, platelets 256, sodium 137, potassium 4.7, creatinine 1.24, magnesium 1.9, initial troponin 0.027 with repeat troponin coming back elevated at 2.75 and third troponin was 6.72, BNP was 354, cholesterol panel reveals hyperlipidemia, lipase is 167. EKG showed normal sinus rhythm. 06/15/2022 Patient is seen in follow-up this morning currently sitting up status post cardiac catheterization with stenting to the LAD. Patient is maintained on aspirin along with brilinta and cardiology recommending another 24 hours of close observation on telemetry monitoring to monitor for any postoperative arrhythmias. Patient is currently afebrile denies chest pain or shortness of breath. Patient denies nausea or vomiting and is tolerating diet. Encourage the patient increase activity as tolerated and up and walk halls more. Review of systems: Constitutional: No reports of fatigue, fever, or chills Cardiovascular: No reports of chest pain or palpitations Respiratory: No reports of shortness of breath or cough GI: No reports of nausea, vomiting, or diarrhea : No reports of dysuria or retention Neurovascular: No reports of weakness or numbness All medications have been reviewed PHYSICAL EXAMINATION: GENERAL: The patient is alert and oriented x4, Well developed, well nourished. Obese HEENT: Pupils are round and equally reacting to light. EOMI. no scleral icterus. No conjunctival pallor. Normocephalic, atraumatic. No pharyngeal erythema. No thyromegaly. CARDIOVASCULAR: S1 and S2 muffled PULMONARY: diminished breath sounds bilaterally with no wheezing or rhonchi noted. ABDOMEN: soft. Nontender on exam. obese. non-distended, normoactive bowel sounds. No palpable organomegaly. MUSCULOSKELETAL: No joint swelling or deformity. EXTREMITIES: No cyanosis, clubbing, or pedal edema. Right wrist post catheterization site dry and intact no hematoma noted NEUROLOGICAL: Gross neurological examination did not reveal any focal deficits. SKIN: No rashes. Assessment: Chest pain, NSTEMI Status post stenting to the LAD Gastroesophageal reflux disease Elevated d-dimer with no evidence of PE on CTA Mild acute kidney injury, likely prerenal Hypertension history Hypothyroidism Hyperlipidemia Obesity with a body mass index of 35.3 GI prophylaxis DVT prophylaxis Full code Plan: Recommend to continue with current medications and management with cardiology following Recommend continue telemetry monitoring overnight monitoring any further arrhythmias. Patient is continued on brilinta and aspirin and will continue. Will follow up with pharmacy as patient has additional medication coverage Recommend continue telemetry monitoring and will follow-up with repeat labs Continue current medications per cardiology recommendations and will monitor closely overnight on telemetry monitoring with possible discharge in 24 hours The impression and plan of care has been dictated by Fernanda Diego, nurse practitioner as directed. Dr. Anthony MD I have performed a history and examination and MDM of this patient, discussed the same with the dictator, and agree with the dictator's assessment and plan as written ,documented as a scribe. Based on total visit time, I have performed more than 50% of the visit. Any additional findings or plans will be noted. Objective - Vital Signs Vital signs: Vital Signs Temp 97.7 F 06/15/22 14:00 Pulse 77 06/15/22 14:00 Resp 18 06/15/22 14:00 BP 103/61 06/15/22 14:00 Pulse Ox 95 06/15/22 14:00 FiO2 Intake & Output 06/14/22 06/15/22 06/15/22 18:59 06:59 18:59 Intake Total 100 118 Balance 100 118 Weight 96.162 kg Intake: IV 100 Oral 118 Other: # Voids 1 2 1 - Labs CBC & Chem 7: 06/15/22 05:42 06/15/22 05:42 Labs: Abnormal Lab Results - Last 24 Hours (Table) 06/15/22 06/15/22 06/15/22 Range/Units 05:42 05:42 05:42 RBC 3.61 L (3.80-5.40) m/uL MCV 100.7 H (80.0-100.0) fL Chloride 108 H (98-107) mmol/L Calcium 8.1 L (8.4-10.2) mg/dL TSH 6.280 H (0.350-5.500) uIU/mL
[2022-06-15] MEDS: FAMOTIDINE 20 MG TAB PO SCH (19:54)
[2022-06-15] MEDS: ATORVASTATIN 80 MG TAB PO SCH (19:54)
[2022-06-15] MEDS: clonazePAM 1 MG TAB PO SCH (19:54)
[2022-06-16] MEDS: LEVOTHYROXINE 88 MCG TAB PO SCH (06:31)
[2022-06-16 07:19] VITALS: BP 127/50; PULSE 69; RESP 18; TEMP 98
--- NOTE | 2022-06-16 09:04 | P.PN ---
Subjective Progress Note Date: 06/16/22 History of present illness: This is a 71-year-old female with no previous cardiac history. PMH of HTN, gas troesophageal reflux disease, hypothyroidism. EKG revealed anterior T-wave inversions Troponin 0.027, 2.75, 6.72. Chest x-ray reveals no acute cardiopulmonary disease CT of the chest negative for pulmonary embolism Home cardiac medications: Benazepril 20 mg twice daily 06/16 Patient underwent cardiac catheterization and stenting of a totally occluded LAD. Right radial site is clean and dry with a good pulse. Echocardiogram revealed EF of 45% with anterior apical septal hypokinesia. Patient is doing well and has no new concerns. No chest pain or shortness of breath. No lightheadedness or dizziness. Heart rate 60s and 70s, blood pressure 127/50, pulse ox 99% on room air. pelletizer sinus rhythm. Repeat blood work reveals hemoglobin 12.2. Potassium 4.4, BUN 13 and creatinine 0.96. Triglycerides 169, cholesterol 225, HDL 54, LDL 136. TSH 6.28, free T4 1 0.31. Physical examination: Gen: This is a 71-year-old female. She is resting and appears to be comfortable and in no acute distress VS: reviewed HEENT: Head is atraumatic, normocephalic. Pupils equal, round. Sclerae is anicteric. NECK: Supple. No JVD. No lymphadenopathy. No thyromegaly. LUNGS: Clear to auscultation. No wheezes or rhonchi. No intercostal retractions. HEART: Regular rate and rhythm. Short systolic murmur. ABDOMEN: Soft. Bowel sounds are present. No masses. No tenderness. EXTREMITIES: No pedal edema. No calf tenderness. NEUROLOGICAL: Patient is awake, alert and oriented x3. Assessment: Non-ST elevated myocardial infarction, recent, involving anterior wall with ejection fraction 45% Hypertension Hypothyroidism Gastroesophageal reflux disease Plan: Continue patient's current cardiac medications Patient is cleared for discharge from cardiology with planned follow-up on 07/02. With Dr. ROSE Liu. Nurse practitioner note has been reviewed, I agree with documented findings and plan of care. Patient was seen and examined. Objective - Vital Signs Vital signs: Vital Signs Temp 98 F 06/16/22 07:17 Pulse 69 06/16/22 07:17 Resp 18 06/16/22 07:17 BP 127/50 01/11/23 07:17 Pulse Ox 99 06/16/22 07:17 FiO2 Intake & Output 06/15/22 06/16/22 06/16/22 18:59 06:59 18:59 Intake Total 118 500 Balance 118 500 Weight 96.162 kg Intake: Oral 118 500 Other: Voiding Method Toilet # Voids 1 - Labs CBC & Chem 7: 06/15/22 05:42 06/15/22 05:42 Labs: Abnormal Lab Results - Last 24 Hours (Table) 06/15/22 Range/Units 05:42 TSH 6.280 H (0.350-5.500) uIU/mL
[2022-06-16] MEDS: METOPROLOL TARTRATE 25 MG TAB PO SCH (09:42)
[2022-06-16] MEDS: TICAGRELOR 90 MG TAB PO SCH (09:42)
[2022-06-16] MEDS: ASPIRIN 81 MG PO SCH (09:42)
[2022-06-16] MEDS: lisinopriL 10 MG TAB PO SCH (09:42)
[2022-06-16] MEDS: SERTRALINE 50 MG TAB PO SCH (09:42)
--- NOTE | 2022-06-16 20:49 | P.DS ---
Providers Date of admission: 06/14/22 10:28 Expected date of discharge: 06/16/22 Attending physician: Nam Martinez MD Consults: 06/13/22 20:25 Consult Physician Urgent Consulting Provider: Flip Guzman Consult Reason/Comments: Unstable angina Do you want consulting provider notified?: Yes, Notify in am 06/14/22 10:24 Consult Physician Routine Consulting Provider: [facility] Consult Reason/Comments: Post Interventional Patient Do you want consulting provider notified?: Already Contacted Primary care physician: Charu Pisano Hospital Course: Final diagnosis Chest pain, NSTEMI Status post stenting to the LAD Gastroesophageal reflux disease Elevated d-dimer with no evidence of PE on CTA Mild acute kidney injury, likely prerenal Hypertension history Hypothyroidism Hyperlipidemia Obesity with a body mass index of 35.3 GI prophylaxis DVT prophylaxis Full code Discharge disposition Patient is being discharged in a stable condition with guarded prognosis to home. Patient will follow-up with Dr. Charu Pisano in the outpatient setting upon discharge. Patient is to follow up with cardiology as scheduled. Continue Brilinta and aspirin and other cardiac medications as mentioned below. Total time taken is greater than 35 minutes. Hospital course This is a 71-year-old female who was recently admitted with chest pain. Patient underwent cardiac catheterization with successful stenting to the mid LAD with 100% occlusion. Patient is doing well and has been cleared by cardiology. Brilinta is $482 and will be applied to yearly deductible and patient is agreeable for now until deductible of $505 is met and then to follow up with cardiology and will be able to further assess if medication will be covered. This was discussed with cardiology [employer] INST[employer]ER as well. Currently no reports of chest pain, shortness of breath, or palpitations. Patient is afebrile. No reports of nausea or vomiting and patient is tolerating diet. Patient will be discharged h ome today. Physical exam: Gen: This is a 71 year old female who is awake, alert and oriented x3. Well developed, well nourished. HEENT: Head is atraumatic, normocephalic. Pupils equal, round. Sclerae is anicteric. NECK: Supple. No JVD. No lymphadenopathy. No thyromegaly. LUNGS: Clear to auscultation. No wheezes or rhonchi. No intercostal retractions. HEART: Regular rate and rhythm. No murmur. ABDOMEN: Soft. Bowel sounds are present. No masses. No tenderness. EXTREMITIES: No pedal edema. No calf tenderness. NEUROLOGICAL: Patient is awake, alert and oriented x3. Cranial nerves 2 through 12 are grossly intact. Please refer to medication reconciliation sheet for a list of medications. The impression and plan of care has been dictated by Fernanda Diego, Nurse Practitioner as directed. Dr. Anthony MD I have performed a history and examination and MDM of this patient, discussed the same with the dictator, and agree with the dictator's assessment and plan as written ,documented as a scribe. Based on total visit time, I have performed more than 50% of the visit. Patient Condition at Discharge: Fair Plan - Discharge Summary New Discharge Prescriptions: New Aspirin 81 mg PO DAILY tab Metoprolol Tartrate [Lopressor] 25 mg PO BID #60 tab Ticagrelor [Brilinta] 90 mg PO BID #60 tab Atorvastatin [Lipitor] 80 mg PO HS #30 tab Nitroglycerin Sl Tabs [Nitrostat] 0.4 mg SUBLINGUAL Q5M PRN #25 tab PRN Reason: Chest Pain Continue Naproxen Sodium [Aleve] 220 mg PO DAILY clonazePAM 1 mg PO HS Famotidine 20 mg PO BID Levothyroxine Sodium [Synthroid] 175 mcg PO DAILY Sertraline [Zoloft] 50 mg PO DAILY Ketoconazole 2% Cream [Nizoral 2%] 1 applic TOPICAL DAILY Halobetasol Propionate [Ultravate 0.05%] 1 applic TOPICAL DAILY Changed Benazepril HCl 10 mg PO BID #0 Discharge Medication List Famotidine 20 mg PO BID 08/25/21 [History] Levothyroxine Sodium [Synthroid] 175 mcg PO DAILY 08/25/21 [History] clonazePAM 1 mg PO HS 08/25/21 [History] Halobetasol Propionate [Ultravate 0.05%] 1 applic TOPICAL DAILY 06/13/22 [History] Ketoconazole 2% Cream [Nizoral 2%] 1 applic TOPICAL DAILY 06/13/22 [History] Naproxen Sodium [Aleve] 220 mg PO DAILY 06/13/22 [History] Sertraline [Zoloft] 50 mg PO DAILY 06/13/22 [History] Aspirin 81 mg PO DAILY tab 06/16/22 [Rx] Atorvastatin [Lipitor] 80 mg PO HS #30 tab 06/16/22 [Rx] Benazepril HCl 10 mg PO BID #0 06/16/22 [Rx] Metoprolol Tartrate [Lopressor] 25 mg PO BID #60 tab 06/16/22 [Rx] Nitroglycerin Sl Tabs [Nitrostat] 0.4 mg SUBLINGUAL Q5M PRN #25 tab 06/16/22 [Rx] Ticagrelor [Brilinta] 90 mg PO BID #60 tab 06/16/22 [Rx] Follow up Appointment(s)/Referral(s): Regina Liu MD [STAFF PHYSICIAN] - 07/02/22 1:00 pm Charu Pisano MD [Primary Care Provider] - 1-2 days (PLEASE CALL AND SCHEDULE APPOINTMENT.) Patient Instructions/Handouts: Metoprolol (By mouth), Nitroglycerin, Rapid Release (By mouth), Atorvastatin (By mouth), Ticagrelor (By mouth), Heart Attack (DC), Coronary Intravascular Stent Placement (DC), After Radial Heart Catheterization (GEN) Activity/Diet/Wound Care/Special Instructions: Activity Limited until follow-up Follow-up primary care provider on discharge Follow-up cardiology as discussed Continue taking medications as prescribed Continue heart healthy low-cholesterol diet Discharge Disposition: HOME SELF-CARE
== END 2022-06-16 11:45 | disposition home or self-care (01) | DRG 247 ==
LOC: EC 15:14 → 6NMEDSUR 20:25 → OBSVTOIN 06-14 10:28 → 6NMEDSUR 06-16 03:14
PROVIDERS: ADMIT Internal Medicine; ATTEND Internal Medicine
PROC: B2111ZZ Fluoroscopy of Multiple Coronary Arteries using Low Osmolar Contrast (ICD-10-PCS; 2022-06-14)
PROC: 027034Z Dilation of Coronary Artery, One Artery with Drug-eluting Intraluminal Device, Percutaneous Approach (ICD-10-PCS; principal; 2022-06-14 16:15)
PROC: 4A023N7 Measurement of Cardiac Sampling and Pressure, Left Heart, Percutaneous Approach (ICD-10-PCS; 2022-06-14 16:15)
DX: I21.4 Non-ST elevation (NSTEMI) myocardial infarction (principal); I25.110 Atherosclerotic heart disease of native coronary artery with unstable angina pectoris; K21.9 Gastro-esophageal reflux disease without esophagitis; I10 Essential (primary) hypertension; E66.9 Obesity, unspecified; Z68.35 Body mass index [BMI] 35.0-35.9, adult; E03.9 Hypothyroidism, unspecified; E78.5 Hyperlipidemia, unspecified; Z96.653 Presence of artificial knee joint, bilateral; Z79.890 Hormone replacement therapy; Z79.899 Other long term (current) drug therapy
CPT/HCPCS: 36415; 71046; 71275; 80048; 80053; 80061; 83690; 83735; 83880; 84439; 84443; 84484; 85025; 85379; 85610; 85730; 93005; 93306; 93454; 94760; 96365; 96366; 99291

== ENCOUNTER 2022-12-01 15:08 | Inpatient (IN) | payer MEDICARE, BC ==
--- NOTE | 2022-12-01 17:28 | ED ---
General Adult HPI - General Chief complaint: Recheck/Abnormal Lab/Rx Stated complaint: abnormal labs-sent by Drs Time Seen by Provider: 12/01/22 17:14 Source: patient, RN notes reviewed, old records reviewed Mode of arrival: ambulatory Limitations: no limitations - History of Present Illness Initial comments: 71-year-old female presenting for evaluation of anemia and low hemoglobin. Patient had been seen by her primary care doctor and laboratory tests were ordered yesterday. She was noted to have a hemoglobin of 6.9 and sent to the emergency prompt for evaluation. She denies bright red rectal bleeding, but states she's had daily diarrhea which is black speckled. She has had some mild dyspnea. No hematuria. She is on aspirin and blood for coronary artery disease and stent placement approximately 6 months ago. - Related Data Home Medications Medication Instructions Recorded Confirmed Famotidine 20 mg PO BID 08/25/21 12/01/22 Levothyroxine Sodium [Synthroid] 175 mcg PO DAILY 08/25/21 12/01/22 clonazePAM 1 mg PO TID PRN 08/25/21 12/01/22 Halobetasol Propionate [Ultravate 1 applic TOPICAL DAILY PRN 06/13/22 12/01/22 0.05%] Sertraline [Zoloft] 50 mg PO DAILY 06/13/22 12/01/22 Albuterol Sulfate [Albuterol 2 puff PO RT-QID PRN 12/01/22 12/01/22 Sulfate Hfa] Losartan Potassium [Cozaar] 25 mg PO HS 12/01/22 12/01/22 Previous Rx's Medication Instructions Recorded Atorvastatin [Lipitor] 80 mg PO HS #30 tab 06/16/22 Benazepril HCl 10 mg PO BID #0 06/16/22 Metoprolol Tartrate [Lopressor] 25 mg PO BID #60 tab 06/16/22 Nitroglycerin Sl Tabs [Nitrostat] 0.4 mg SUBLINGUAL Q5M PRN #25 tab 06/16/22 Allergies Allergy/AdvReac Type Severity Reaction Status Date / Time No Known Allergies Allergy Verified 12/01/22 17:56 Review of Systems ROS Statement: Those systems with pertinent positive or pertinent negative responses have been documented in the HPI. ROS Other: All systems not noted in ROS Statement are negative. Past Medical History Past Medical History: GERD/Reflux, Hypertension, Thyroid Disorder History of Any Multi-Drug Resistant Organisms: None Reported Past Surgical History: Hysterectomy, Orthopedic Surgery Additional Past Surgical History / Comment(s): Bilateral partial knee replacements. Past Anesthesia/Blood Transfusion Reactions: No Reported Reaction Past Psychological History: No Psychological Hx Reported Smoking Status: Never smoker Past Alcohol Use History: Occasional Past Drug Use History: None Reported - Past Family History Mother Family Medical History: No Reported History General Exam Limitations: no limitations General appearance: alert, in no apparent distress Head exam: Present: atraumatic, normocephalic Eye exam: Present: normal appearance, PERRL ENT exam: Present: normal exam Neck exam: Present: normal inspection. Absent: tenderness, meningismus Respiratory exam: Present: normal lung sounds bilaterally. Absent: respiratory distress, wheezes Cardiovascular Exam: Present: regular rate, normal rhythm GI/Abdominal exam: Present: soft. Absent: distended, tenderness Neurological exam: Present: alert, oriented X3, CN II-XII intact. Absent: motor sensory deficit Psychiatric exam: Present: normal affect, normal mood Skin exam: Present: warm, dry, intact. Absent: cyanosis, diaphoretic, pallor Course Vital Signs 12/01/22 12/01/22 15:21 18:36 Temperature 98.1 F 97.7 F Pulse Rate 74 62 Respiratory 18 16 Rate Blood Pressure 132/62 150/68 O2 Sat by Pulse 99 100 Oximetry Medical Decision Making - Medical Decision Making Was pt. sent in by a medical professional or institution (AYDE Hightower, PANTOGRAPH ENGRAVER, urgent care, hospital, or half-way...) When possible be specific @ -Sent in by primary care physician with anemia Did you speak to anyone other than the patient for history (EMS, parent, family, police, friend...)? What history was obtained from this source @ -No Did you review nursing and triage notes (agree or disagree)? Why? @ -I reviewed and agree with nursing and triage notes Were old charts reviewed (outside hosp., previous admission, EMS record, old EKG, old radiological studies, urgent care reports/EKG's, half-way records)? Report findings @ -No old charts were reviewed Differential Diagnosis (chest pain, altered mental status, abdominal pain women, abdominal pain men, vaginal bleeding, weakness, fever, dyspnea, syncope, headache, dizziness, GI bleed, back pain, seizure, CVA, palpatations, mental health, musculoskeletal)? @ Differential Weakness: Hypoglycemia, shock, sepsis, hyponatremia, anemia, infection, AK, ETOH, adverse medicine reaction, overdose, stroke, this is not meant to be an all-inclusive list. EKG interpreted by me (3pts min.). @ -Sinus rhythm rate of 60, UT interval 158, QRS duration 86, QTC [address] segment changes X-rays interpreted by me (1pt min.). @ -None done CT interpreted by me (1pt min.). @ -None done U/S interpreted by me (1pt. min.). @ -None done What testing was considered but not performed or refused? (CT, X-rays, U/S, labs)? Why? @ -None What meds were considered but not given or refused? Why? @ -None Did you discuss the management of the patient with other professionals (professionals i.e. , PA, PANTOGRAPH ENGRAVER, lab, RT, psych nurse, social work faculty member, asian art curator, teacher, naval gunfire liaison officer, lead case manager)? Give summary @ -[EMH Was smoking cessation discussed for >3mins.? @ -No Was critical care preformed (if so, how long)? @ -No Were there social determinants of health that impacted care today? How? (Homelessness, low income, unemployed, alcoholism, drug addiction, transportation, low edu. Level, literacy, decrease access to med. care, care home, rehab)? @ -No Was there de-escalation of care discussed even if they declined (Discuss DNR or withdrawal of care, Hospice)? DNR status @ -No What co-morbidities impacted this encounter? (DM, HTN, Smoking, COPD, CAD, Cancer, CVA, ARF, Chemo, Hep., AIDS, mental health diagnosis, sleep apnea, morbid obesity)? @ -[CAD Was patient admitted / discharged? Hospital course, mention meds given and route, prescriptions, significant lab abnormalities, going to OR and other pertinent info. @ -[71-year-old female presenting with anemia in the outpatient setting. She does admit to daily diarrhea which has black specks within it. No bright red rectal bleeding. Patient feels mild dyspnea. Repeat hemoglobin is 7.3. She started on proton pump inhibitor she will be admitted for repeat hemoglobin in the morning and GI consultation for suspected GI bleed. Aspirin and brilinta will be held at this time. Undiagnosed new problem with uncertain prognosis? @ -No Drug Therapy requiring intensive monitoring for toxicity (Heparin, Nitro, Insulin, Cardizem)? @ -No Were any procedures done? @ -No Diagnosis/symptom? @ -Anemia, suspect GI bleed Acute, or Chronic, or Acute on Chronic? @ -Acute Uncomplicated (without systemic symptoms) or Complicated (systemic symptoms)? @ -default Side effects of treatment? @ -No Exacerbation, Progression, or Severe Exacerbation? @ -No Poses a threat to life or bodily function? How? (Chest pain, USA, AK, pneumonia, PE, COPD, DKA, ARF, appy, cholecystitis, CVA, Diverticulitis, Homicidal, Suicidal, threat to staff... and all critical care pts) @ -[Yes, GI bleed, acute blood loss anemia - Lab Data Result diagrams: 12/01/22 17:35 12/01/22 17:35 Lab Results 12/01/22 12/01/22 12/01/22 Range/Units 17:15 17:30 17:35 WBC 6.4 (3.8-10.6) k/uL RBC 2.56 L (3.80-5.40) m/uL Hgb 7.3 L (11.4-16.0) gm/dL Hct 22.9 L (34.0-46.0) % MCV 89.6 (80.0-100.0) fL MCH 28.7 (25.0-35.0) pg MCHC 32.0 (31.0-37.0) g/dL RDW 13.9 (11.5-15.5) % Plt Count 349 (150-450) k/uL MPV 7.7 Neutrophils % 69 % Lymphocytes % 14 % Monocytes % 8 % Eosinophils % 5 % Basophils % 1 % Neutrophils # 4.4 (1.3-7.7) k/uL Lymphocytes # 0.9 L (1.0-4.8) k/uL Monocytes # 0.5 (0-1.0) k/uL Eosinophils # 0.3 (0-0.7) k/uL Basophils # 0.1 (0-0.2) k/uL Hypochromasia Marked Poikilocytosis Slight PT (9.0-12.0) sec INR (<1.2) APTT (22.0-30.0) sec Sodium (137-145) mmol/L Potassium (3.5-5.1) mmol/L Chloride (98-107) mmol/L Carbon Dioxide (22-30) mmol/L Anion Gap mmol/L BUN (7-17) mg/dL Creatinine (0.52-1.04) mg/dL Est GFR (CKD-EPI)AfAm (>60 ml/min/1.73 sqM) Est GFR (CKD-EPI)NonAf (>60 ml/min/1.73 sqM) Glucose (74-99) mg/dL Calcium (8.4-10.2) mg/dL Total Bilirubin (0.2-1.3) mg/dL AST (14-36) U/L ALT (4-34) U/L Alkaline Phosphatase (38-126) U/L Total Protein (6.3-8.2) g/dL Albumin (3.5-5.0) g/dL Urine Color Urine Appearance (Clear) Urine pH (5.0-8.0) Ur Specific [place] (1.001-1.035) Urine Protein (Negative) Urine Glucose (UA) (Negative) Urine Ketones (Negative) Urine Blood (Negative) Urine Nitrite (Negative) Urine Bilirubin (Negative) Urine Urobilinogen (<2.0) mg/dL Ur Leukocyte Esterase (Negative) Urine RBC (0-5) /hpf Urine WBC (0-5) /hpf Ur Squamous Epith Cells (0-4) /hpf Hyaline Casts (0-2) /lpf Urine Mucus (None) /hpf Blood Type A Positive Blood Type Confirm A Positive Blood Type Recheck No Previous Record Bld Type Recheck Status CABO Indicated Antibody Screen NEGATIVE Spec Expiration Date 12/04/2022 - 232912/01/22 12/01/22 12/01/22 Range/Units 17:35 17:35 18:24 WBC (3.8-10.6) k/uL RBC (3.80-5.40) m/uL Hgb (11.4-16.0) gm/dL Hct (34.0-46.0) % MCV (80.0-100.0) fL MCH (25.0-35.0) pg MCHC (31.0-37.0) g/dL RDW (11.5-15.5) % Plt Count (150-450) k/uL MPV Neutrophils % % Lymphocytes % % Monocytes % % Eosinophils % % Basophils % % Neutrophils # (1.3-7.7) k/uL Lymphocytes # (1.0-4.8) k/uL Monocytes # (0-1.0) k/uL Eosinophils # (0-0.7) k/uL Basophils # (0-0.2) k/uL Hypochromasia Poikilocytosis PT 9.8 (9.0-12.0) sec INR 0.9 (<1.2) APTT 22.2 (22.0-30.0) sec Sodium 136 L (137-145) mmol/L Potassium 5.0 (3.5-5.1) mmol/L Chloride 106 (98-107) mmol/L Carbon Dioxide 21 L (22-30) mmol/L Anion Gap 9 mmol/L BUN 28 H (7-17) mg/dL Creatinine 1.23 H (0.52-1.04) mg/dL Est GFR (CKD-EPI)AfAm 51 (>60 ml/min/1.73 sqM) Est GFR (CKD-EPI)NonAf 44 (>60 ml/min/1.73 sqM) Glucose 97 (74-99) mg/dL Calcium 8.8 (8.4-10.2) mg/dL Total Bilirubin 0.3 (0.2-1.3) mg/dL AST 30 (14-36) U/L ALT 33 (4-34) U/L Alkaline Phosphatase 123 (38-126) U/L Total Protein 6.7 (6.3-8.2) g/dL Albumin 4.0 (3.5-5.0) g/dL Urine Color Yellow Urine Appearance Clear (Clear) Urine pH 5.0 (5.0-8.0) Ur Specific [place] 1.017 (1.001-1.035) Urine Protein Negative (Negative) Urine Glucose (UA) Negative (Negative) Urine Ketones Negative (Negative) Urine Blood Negative (Negative) Urine Nitrite Negative (Negative) Urine Bilirubin Negative (Negative) Urine Urobilinogen <2.0 (<2.0) mg/dL Ur Leukocyte Esterase Trace H (Negative) Urine RBC 1 (0-5) /hpf Urine WBC <1 (0-5) /hpf Ur Squamous Epith Cells 2 (0-4) /hpf Hyaline Casts 15 H (0-2) /lpf Urine Mucus Rare H (None) /hpf Blood Type Blood Type Confirm Blood Type Recheck Bld Type Recheck Status Antibody Screen Spec Expiration Date Disposition Clinical Impression: Acute blood loss anemia Disposition: ADMITTED IP TO THIS HOSP Condition: Stable Is patient prescribed a controlled substance at d/c from ED?: No Time of Disposition: 19:48
[2022-12-01 17:53] LABS: Basophils # (A) 0.1 k/uL (0-0.2); Basophils % (A) 1 %; Eosinophils # (A) 0.3 k/uL (0-0.7); Eosinophils % (A) 5 %; HCT 22.9 % (34.0-46.0); HGB 7.3 gm/dL (11.4-16.0); Hypochromasia Marked; Lymphocytes # (A) 0.9 k/uL (1.0-4.8); Lymphocytes % (A) 14 %; MCH 28.7 pg (25.0-35.0); MCV 89.6 fL (80.0-100.0); Mean Platelet Volume 7.7; Monocytes # (A) 0.5 k/uL (0-1.0); Monocytes % (A) 8 %; Neutrophils # (A) 4.4 k/uL (1.3-7.7); Neutrophils % (A) 69 %; Platelet Count 349 k/uL (150-450); Poikilocytosis Slight; RBC 2.56 m/uL (3.80-5.40); RDW 13.9 % (11.5-15.5); WBC 6.4 k/uL (3.8-10.6)
[2022-12-01 17:59] LABS: INR 0.9 (<1.2); Prothrombin Time 9.8 sec (9.0-12.0)
[2022-12-01 18:06] LABS: Partial Thromboplastin Time 22.2 sec (22.0-30.0)
[2022-12-01] MEDS ORDERED: PANTOPRAZOLE 40 MG/10 ML VIAL IVP STA (18:06)
[2022-12-01 18:16] LABS: ALT 33 U/L (4-34); AST 30 U/L (14-36); African American GFR (CKD) 51 (>60 ml/min/1.73 sqM); Alkaline Phosphatase 123 U/L (38-126); Anion Gap 9 mmol/L; Blood Urea Nitrogen 28 mg/dL (7-17); Calcium 8.8 mg/dL (8.4-10.2); Carbon Dioxide 21 mmol/L (22-30); Chloride 106 mmol/L (98-107); Glucose 97 mg/dL (74-99); Non-African American GFR(CKD) 44 (>60 ml/min/1.73 sqM); Sodium 136 mmol/L (137-145); Total Bilirubin 0.3 mg/dL (0.2-1.3); Total Protein 6.7 g/dL (6.3-8.2)
[2022-12-01 18:57] LABS: Appearance,Urine Clear (Clear); Bilirubin,Urine Negative (Negative); Blood,Urine Negative (Negative); Color,Urine Yellow; Glucose,Urine (UA) Negative (Negative); Hyaline Casts,Urine 15 /lpf (0-2); Ketones,Urine Negative (Negative); Leukocyte Esterase,Urine Trace (Negative); Mucus,Urine Rare /hpf; Nitrite,Urine Negative (Negative); Protein,Urine Negative (Negative); RBC,Urine 1 /hpf (0-5); Specific Gravity,Urine 1.017 (1.001-1.035); Squamous Epithelial Cell,Urine 2 /hpf (0-4); Urobilinogen,Urine <2.0 mg/dL (<2.0); WBC,Urine <1 /hpf (0-5)
[2022-12-01] MEDS ORDERED: NALOXONE 0.4 MG/ML 1 ML VIAL IV PRN (19:41)
[2022-12-01] MEDS: SODIUM CHLORIDE 0.9% 1,000 ML IV SCH (20:00)
[2022-12-01] MEDS: PANTOPRAZOLE 40 MG/10 ML VIAL IVP SCH (21:25)
[2022-12-01] MEDS ORDERED: clonazePAM 1 MG TAB PO PRN (23:13)
[2022-12-01] MEDS ORDERED: CLOBETASOL PROP 0.05% CR 15GM TOPICAL PRN (23:13)
[2022-12-01] MEDS ORDERED: ALBUTEROL NEBULIZED 2.5 MG/3 ML INHALATION PRN (23:13)
[2022-12-01] MEDS: METOPROLOL TARTRATE 25 MG TAB PO SCH (23:44)
[2022-12-02] MEDS: LEVOTHYROXINE 88 MCG TAB PO SCH (05:43)
[2022-12-02] MEDS: METOPROLOL TARTRATE 25 MG TAB PO SCH ×2 (08:37→19:59)
[2022-12-02] MEDS: PANTOPRAZOLE 40 MG/10 ML VIAL IVP SCH ×2 (08:37→19:59)
[2022-12-02] MEDS: SERTRALINE 50 MG TAB PO SCH (08:37)
[2022-12-02 09:01] LABS: Basophils # (A) 0.07 X 10*3/uL (0.00-0.10); Basophils % (A) 1.2 %; Eosinophils # (A) 0.31 X 10*3/uL (0.04-0.35); Eosinophils % (A) 5.2 %; HCT 21.6 % (37.2-46.3); HGB 6.5 d/dL (12.0-15.0); Lymphocytes # (A) 0.98 X 10*3/uL (0.90-5.00); Lymphocytes % (A) 16.4 %; MCHC 30.1 d/dL (32.0-37.0); MCV 93.1 FL (80.0-97.0); Mean Platelet Volume 9.8 FL (9.5-12.2); Monocytes # (A) 0.75 X 10*3/uL (0.20-1.00); Monocytes % (A) 12.6 %; NRBC Per 100 WBC 0 X 10*3/uL (0.00-0.01); Neutrophils # (A) 3.83 X 10*3/uL (1.80-7.70); Neutrophils % (A) 64.3 %; Platelet Count 307 X 10*3/uL (140-440); RBC 2.32 X 10*6/uL (4.10-5.20); RDW 13.2 % (11.5-14.5); WBC 5.96 X 10*3/uL (4.50-10.00)
[2022-12-02 09:09] LABS: Blood Urea Nitrogen 23.4 mg/dL (9.0-27.0); Chloride 110 mmol/L (96-109); Glucose 87 mg/dL (70-110); Potassium 4.8 mmol/L (3.5-5.5); Sodium 140 mmol/L (135-145)
[2022-12-02 09:10] LABS: Calcium 8.9 mg/dL (8.7-10.3); Carbon Dioxide 21.7 mmol/L (21.6-31.8)
--- NOTE | 2022-12-02 14:13 | P.HPIM ---
History of Present Illness H&P Date: 12/02/22 This is a 71 year old female with medical history of hypertension, GERD, hypothyroidism, coronary artery disease with prior stent placement 6 months ago. Presents to the hospital sent in by her PCP for abnormal labs was found to have hemoglobin of 6.9 outpatient. Patient denies any bright red rectal bleeding does report having some black colored stool. Patient states she has felt fatigued and weak which started shortly after her NC in June of this year and being started on the dual antiplatelet therapy. Initial work up reveals hemoglobin of 7.3 which dropped to 6.5 this morning. Iron studies are ordered, patient will receive 1 unit of PRBCs. GI consultation in place and patient to undergo endoscopy tomorrow. Had mild SHERRY on admission creatinine 1.23 which is improving with hydration. Urinalysis normal. Aspirin and plavix are currently being held at this time. REVIEW OF SYSTEMS: CONSTITUTIONAL: No fever, no malaise. Reports fatigue. HEENT: No recent visual problems or hearing problems. Denied any sore throat. CARDIOVASCULAR: No chest pain, orthopnea, PND, no palpitations, no syncope. PULMONARY: No shortness of breath, no cough, no hemoptysis. GASTROINTESTINAL: No diarrhea, no nausea, no vomiting, no abdominal pain. NEUROLOGICAL: No headaches, no weakness, no numbness. HEMATOLOGICAL: Denies any bleeding or petechiae. GENITOURINARY: Denies any burning micturition, frequency, or urgency. MUSCULOSKELETAL/RHEUMATOLOGICAL: Denies any joint pain, swelling, or any muscle pain. ENDOCRINE: Denies any polyuria or polydipsia. The rest of the 14-point review of systems is negative. PHYSICAL EXAMINATION: GENERAL: The patient is alert and oriented x3, not in any acute distress. Well developed, well nourished. HEENT: Pupils are round and equally reacting to light. EOMI. No scleral icterus. No conjunctival pallor. Normocephalic, atraumatic. No pharyngeal erythema. No thyromegaly. CARDIOVASCULAR: S1 and S2 present. No murmurs, rubs, or gallops. PULMONARY: Chest is clear to auscultation, no wheezing or crackles. ABDOMEN: Soft, nontender, nondistended, normoactive bowel sounds. No palpable organomegaly. MUSCULOSKELETAL: No joint swelling or deformity. EXTREMITIES: No cyanosis, clubbing, or pedal edema. NEUROLOGICAL: Gross neurological examination did not reveal any focal deficits. SKIN: No rashes. Assessment Anemia, normocytic with reports of black coffee ground appearing stool likely an upper GI bleed s/t aspirin and plavix therapy Fatigue and weakness likely secondary to above Myocardial infarction with cardiac stent placed 6 months, has been continued on dual antiplatelet therapy History hypertension Gastroesophageal reflux disorder Daily alcohol use 2 glasses of wine GI prophylaxis protonix Plan Patient scheduled to undergo EGD tomorrow with Dr Kolton Guzman Hold aspirin plavix for now pending clearance to resume recommend to resume as soon as possible due to recent cardiac stenting Transfuse 1 unit of PRBC today and repeat CBC tomorrow The impression and plan of care has been dictated by Aishwarya Min, Nurse Practitioner as directed. Dr. Anthony MD I have performed a history and physical examination and medical decision making of this patient, discussed the same with the dictator, and agree with the dictators assessment and plan as written, documented as a scribe. Based on total visit time, I have performed more than 50% of this visit. Past Medical History Past Medical History: GERD/Reflux, Hypertension, Thyroid Disorder Last Myocardial Infarction Date:: 06/2022 History of Any Multi-Drug Resistant Organisms: None Reported Past Surgical History: Hysterectomy, Orthopedic Surgery Additional Past Surgical History / Comment(s): Bilateral partial knee replacements. Past Anesthesia/Blood Transfusion Reactions: No Reported Reaction Past Psychological History: No Psychological Hx Reported Smoking Status: Never smoker Past Alcohol Use History: Occasional Past Drug Use History: None Reported - Past Family History Mother Family Medical History: No Reported History Medications and Allergies Home Medications Medication Instructions Recorded Confirmed Type Famotidine 20 mg PO BID 08/25/21 12/01/22 History Levothyroxine Sodium [Synthroid] 175 mcg PO DAILY 08/25/21 12/01/22 History clonazePAM 1 mg PO TID PRN 08/25/21 12/01/22 History Halobetasol Propionate [Ultravate 1 applic TOPICAL DAILY PRN 06/13/22 12/01/22 History 0.05%] Sertraline [Zoloft] 50 mg PO DAILY 06/13/22 12/01/22 History Atorvastatin [Lipitor] 80 mg PO HS #30 tab 06/16/22 12/01/22 Rx Benazepril HCl 10 mg PO BID #0 06/16/22 12/01/22 Rx Metoprolol Tartrate [Lopressor] 25 mg PO BID #60 tab 06/16/22 12/01/22 Rx Nitroglycerin Sl Tabs [Nitrostat] 0.4 mg SUBLINGUAL Q5M PRN #25 tab 06/16/22 12/01/22 Rx Albuterol Sulfate [Albuterol 2 puff PO RT-QID PRN 12/01/22 12/01/22 History Sulfate Hfa] Losartan Potassium [Cozaar] 25 mg PO HS 12/01/22 12/01/22 History Allergies Allergy/AdvReac Type Severity Reaction Status Date / Time No Known Allergies Allergy Verified 12/01/22 17:56 Physical Exam Vitals: Vital Signs Temp Pulse Pulse Resp BP BP Pulse Ox 12/02/22 07:25 97.8 F 63 14 110/67 100 12/02/22 00:55 97.9 F 65 16 107/66 97 12/01/22 21:10 98.1 F 67 16 159/53 99 12/01/22 18:36 97.7 F 62 16 150/68 100 12/01/22 15:21 98.1 F 74 18 132/62 99 Intake and Output 12/01/22 12/02/22 12/02/22 22:59 06:59 14:59 Other: # Voids 1 Weight 92.986 kg Results CBC & Chem 7: 12/02/22 05:34 12/02/22 05:34 Labs: Abnormal Lab Results - Last 24 Hours (Table) 12/01/22 12/01/22 12/01/22 Range/Units 17:30 17:35 17:35 RBC 2.56 L (3.80-5.40) m/uL Hgb 7.3 L (11.4-16.0) gm/dL Hct 22.9 L (34.0-46.0) % MCHC (32.0-37.0) d/dL Lymphocytes # 0.9 L (1.0-4.8) k/uL Sodium 136 L (137-145) mmol/L Chloride (96-109) mmol/L Carbon Dioxide 21 L (22-30) mmol/L BUN 28 H (7-17) mg/dL Creatinine 1.23 H (0.52-1.04) mg/dL Est GFR (CKD-EPI) (>=60) Ur Leukocyte Esterase (Negative) Hyaline Casts (0-2) /lpf Urine Mucus (None) /hpf Crossmatch See Detail 12/01/22 12/02/22 12/02/22 Range/Units 18:24 05:34 05:34 RBC 2.32 L (3.80-5.40) m/uL Hgb 6.5 H* (11.4-16.0) gm/dL Hct 21.6 L (34.0-46.0) % MCHC 30.1 L (32.0-37.0) d/dL Lymphocytes # (1.0-4.8) k/uL Sodium (137-145) mmol/L Chloride 110 H (96-109) mmol/L Carbon Dioxide (22-30) mmol/L BUN (7-17) mg/dL Creatinine (0.52-1.04) mg/dL Est GFR (CKD-EPI) 48 L (>=60) Ur Leukocyte Esterase Trace H (Negative) Hyaline Casts 15 H (0-2) /lpf Urine Mucus Rare H (None) /hpf Crossmatch Assessment and Plan Time with Patient: Less than 30
[2022-12-02 15:11] LABS: % Iron Saturation 2.82 (12.00-45.00); Ferritin 10.7 ng/mL (10.0-291.0)
--- NOTE | 2022-12-02 15:35 | P.CONS ---
History of Present Illness - Reason for Consult Consult date: 12/02/22 Anemia Requesting physician: Navdeep Jackson - Chief Complaint Abnormal labs - History of Present Illness Pleasant 71-year-old female who presented to the emergency department advised by her primary care physician after she had scheduled blood work that revealed a low hemoglobin. Patient's outpatient hemoglobin was 6.9 on admission hemoglobin was 7.3. Past medical history includes coronary artery disease with stent in June on Brilinta and aspirin, GERD, hypertension, and hypothyroidism. Patient states she called her credit intern and they told her to stop the Brilinta and aspirin. She denies any NSAID use. Denies any previous history of GI bleed, peptic ulcer disease, and no previous EGD. Her last colonoscopy 08/26/[address] Guzman with findings of a sigmoid polyp status post polypectomy and scattered diverticulosis. Patient states that for about the last 4 months duration she's been having black loose stools. She currently denies any abdominal pain, nausea, or vomiting. Today's repeat labs WBC 5.9 hemoglobin 6.5 hematocrit 21 platelet count 307,000 finger 0.9 sodium 140 potassium 4.8 BUN 23 creatinine 1.2 iron 13 TIBC 461 ferritin 3.7 vitamin B12 347 Ramsey 8.8 Review of Systems REVIEW OF SYSTEMS: CARDIOPULMONARY: No chest pain or shortness of breath. Gastrointestinal: No epigastric or abdominal pain. No nausea or vomiting. No hematemesis, coffee-ground emesis. Loose stools, coffee-ground looking for past 4 months. GENITOURINARY: No dysuria or hematuria. MUSCULOSKELETAL: Reports normal range of motion., Joint pain. SKIN: No rashes. No jaundice. ENDOCRINE: No chills, fevers. No excessive weight gain or loss. No polydipsia or polyuria. PSYCHIATRIC: Unremarkable. NEUROLOGY: No change in mental status. Denies dizziness, headache. ENT: Vision unremarkable. CONSTITUTIONAL: No recent weight loss. No fever, chills, night sweats. Past Medical History Past Medical History: GERD/Reflux, Hypertension, Thyroid Disorder Last Myocardial Infarction Date:: 06/2022 History of Any Multi-Drug Resistant Organisms: None Reported Past Surgical History: Hysterectomy, Orthopedic Surgery Additional Past Surgical History / Comment(s): Bilateral partial knee replacements. Past Anesthesia/Blood Transfusion Reactions: No Reported Reaction Past Psychological History: No Psychological Hx Reported Smoking Status: Never smoker Past Alcohol Use History: Occasional Past Drug Use History: None Reported - Past Family History Mother Family Medical History: No Reported History Medications and Allergies Home Medications Medication Instructions Recorded Confirmed Type Famotidine 20 mg PO BID 08/25/21 12/01/22 History Levothyroxine Sodium [Synthroid] 175 mcg PO DAILY 08/25/21 12/01/22 History clonazePAM 1 mg PO TID PRN 08/25/21 12/01/22 History Halobetasol Propionate [Ultravate 1 applic TOPICAL DAILY PRN 06/13/22 12/01/22 History 0.05%] Sertraline [Zoloft] 50 mg PO DAILY 06/13/22 12/01/22 History Atorvastatin [Lipitor] 80 mg PO HS #30 tab 06/16/22 12/01/22 Rx Benazepril HCl 10 mg PO BID #0 06/16/22 12/01/22 Rx Metoprolol Tartrate [Lopressor] 25 mg PO BID #60 tab 06/16/22 12/01/22 Rx Nitroglycerin Sl Tabs [Nitrostat] 0.4 mg SUBLINGUAL Q5M PRN #25 tab 06/16/22 12/01/22 Rx Albuterol Sulfate [Albuterol 2 puff PO RT-QID PRN 12/01/22 12/01/22 History Sulfate Hfa] Losartan Potassium [Cozaar] 25 mg PO HS 12/01/22 12/01/22 History Allergies Allergy/AdvReac Type Severity Reaction Status Date / Time No Known Allergies Allergy Verified 12/01/22 17:56 Physical Exam Vitals: Vital Signs Temp Pulse Pulse Resp BP BP Pulse Ox 12/02/22 07:25 97.8 F 63 14 110/67 100 12/02/22 00:55 97.9 F 65 16 107/66 97 12/01/22 21:10 98.1 F 67 16 159/53 99 12/01/22 18:36 97.7 F 62 16 150/68 100 12/01/22 15:21 98.1 F 74 18 132/62 99 Intake and Output 12/01/22 12/02/22 12/02/22 22:59 06:59 14:59 Other: # Voids 1 Weight 92.986 kg General appearance: The patient is alert, oriented, appears in no acute distress. HET: Head is normocephalic and atraumatic. Conjunctiva pink. Sclera anicteric. Neck: Supple without lymphadenopathy. Abdomen: Soft, nontender, nondistended with bowel sounds. No guarding or rigidity. Extremities: Normal skin color and turgor. No pedal edema Skin: No rashes, no jaundice Neurological: No focal deficits. Alert and oriented. Results CBC & Chem 7: 12/02/22 05:34 12/02/22 05:34 Labs: Abnormal Lab Results - Last 24 Hours (Table) 12/01/22 12/01/22 12/01/22 Range/Units 17:30 17:35 17:35 RBC 2.56 L (3.80-5.40) m/uL Hgb 7.3 L (11.4-16.0) gm/dL Hct 22.9 L (34.0-46.0) % MCHC (32.0-37.0) d/dL Lymphocytes # 0.9 L (1.0-4.8) k/uL Sodium 136 L (137-145) mmol/L Chloride (96-109) mmol/L Carbon Dioxide 21 L (22-30) mmol/L BUN 28 H (7-17) mg/dL Creatinine 1.23 H (0.52-1.04) mg/dL Est GFR (CKD-EPI) (>=60) Ur Leukocyte Esterase (Negative) Hyaline Casts (0-2) /lpf Urine Mucus (None) /hpf Crossmatch See Detail 12/01/22 12/02/22 12/02/22 Range/Units 18:24 05:34 05:34 RBC 2.32 L (3.80-5.40) m/uL Hgb 6.5 H* (11.4-16.0) gm/dL Hct 21.6 L (34.0-46.0) % MCHC 30.1 L (32.0-37.0) d/dL Lymphocytes # (1.0-4.8) k/uL Sodium (137-145) mmol/L Chloride 110 H (96-109) mmol/L Carbon Dioxide (22-30) mmol/L BUN (7-17) mg/dL Creatinine (0.52-1.04) mg/dL Est GFR (CKD-EPI) 48 L (>=60) Ur Leukocyte Esterase Trace H (Negative) Hyaline Casts 15 H (0-2) /lpf Urine Mucus Rare H (None) /hpf Crossmatch Assessment and Plan (1) Anemia Narrative/Plan: 71-year-old female presenting with low blood count in the outpatient setting. Patient recently underwent coronary artery stenting in June of this year was put on Brilinta and aspirin. She states about the last 4 months she's noted black diarrhea. She has noted some shortness of breath. She had drop in her hemoglobin again today to 6.5 receiving 1 unit of blood. No previous peptic ulcer disease, no NSAID use, no previous upper GI bleed. Recent colonoscopy 322 6 status post polypectomy and scattered diverticulosis. Unclear etiology at this time, need to consider possible peptic ulcer disease, AVM, gastritis, etc. hepatitis her other possible etiologies. Will proceed with upper endoscopy and possible small bowel capsule endoscopy if needed. Current Visit: Yes Status: Acute Code(s): D64.9 - ANEMIA, UNSPECIFIED SNOMED Code(s): 343899745 (2) Melena Current Visit: Yes Status: Acute Code(s): K92.1 - MELENA SNOMED Code(s): 7262403 (3) Coronary artery disease Current Visit: Yes Status: Acute Code(s): I25.10 - ATHSCL HEART DISEASE OF [place] CORONARY ARTERY W/O ANG PCTRS SNOMED Code(s): 30095094 Plan: 1. Continue symptomatic and supportive care 2. Daily CBC, transfuse for hemoglobin less than 7 3. Protonix 40 mg daily 4. full liquid diet, nothing by mouth after midnight 5. Hold Brilinta and aspirin 6. Avoid NSAIDs 7. We'll plan for upper endoscopy tomorrow, possible small bowel capsule endoscopy if normal I EGD Thank you for this consultation, we will continue to follow. Dr. Kolton Guzman I agree with the dictator's note, documented as a scribe by Pepper Menchaca.
[2022-12-02] MEDS: SODIUM CHLORIDE 0.9% 1,000 ML IV SCH ×2 (19:59→20:00)
[2022-12-02] MEDS ORDERED: ATORVASTATIN 80 MG TAB PO SCH (21:00)
[2022-12-03] MEDS ORDERED: diphenhydrAMINE 50 MG/ML 1 ML VIAL IVP STA (03:43)
[2022-12-03] MEDS: LEVOTHYROXINE 88 MCG TAB PO SCH (06:15)
[2022-12-03] MEDS ORDERED: IV FLUID CONTINUATION 400 ML IV ONE ×2 (08:33)
[2022-12-03] MEDS ORDERED: PROPOFOL 10 MG/ML 20 ML VIAL IV ONE (08:37)
[2022-12-03] MEDS ORDERED: LIDOCAINE 2% INJ 20 MG/ML (2 ML VIAL) ONE (08:37)
--- NOTE | 2022-12-03 08:45 | P.PCN ---
Date of Procedure: 12/03/22 Procedure(s) Performed: BRIEF HISTORY: Patient is a 71-year-old, pleasant, white female admitted hospital with severe anemia and black tarry stools for the last 3-4 months duration. She has history of coronary disease and had stent placement in June of this year and since then has been on aspirin and brillinta which is currently on hold for the last 1 week.. PROCEDURE PERFORMED: Esophagogastroduodenoscopy. PREOPERATIVE DIAGNOSIS: Severe symptomatic anemia and black tarry stools of 4 months duration. IV sedation per anesthesia. PROCEDURE: After informed consent was obtained, the patient was brought into the endoscopy unit. IV sedation was administered by Anesthesia under continuous monitoring. Initially the Olympus GIF-140 video endoscope was inserted into the mouth. Esophagus intubated without any difficulty. It was gradually advanced into the stomach and duodenum and carefully examined. The bulb and the second part of the duodenum appeared normal. The scope at this time was withdrawn to the stomach, adequately insufflated with air, and upon careful examination, mucosa of the antrum, body, cardia and the fundus appeared normal. The scope was then withdrawn into the esophagus. Small sliding type hiatal hernia noted. The GE junction was located at 39 cm from the incisors. The esophagus appeared normal. There were no erosions or ulcerations seen and the patient tolerated the procedure well. IMPRESSION: 1. Very small sliding type hiatal hernia. 2. No evidence of esophagitis, gastritis, peptic ulcer disease or angiectasia. RECOMMENDATIONS: The findings of this examination were discussed with the patient . She will be scheduled for a small bowel capsule endoscopy today to evaluate further..
[2022-12-03 08:58] LABS: Basophils # (A) 0.06 X 10*3/uL (0.00-0.10); Basophils % (A) 1.2 %; Eosinophils # (A) 0.33 X 10*3/uL (0.04-0.35); Eosinophils % (A) 6.5 %; HGB 7.3 d/dL (12.0-15.0); Lymphocytes # (A) 0.81 X 10*3/uL (0.90-5.00); Lymphocytes % (A) 15.9 %; MCH 28.4 pg (27.0-32.0); MCHC 30.4 d/dL (32.0-37.0); MCV 93.4 FL (80.0-97.0); Mean Platelet Volume 9.9 FL (9.5-12.2); Monocytes # (A) 0.65 X 10*3/uL (0.20-1.00); Monocytes % (A) 12.8 %; NRBC Per 100 WBC 0 X 10*3/uL (0.00-0.01); Neutrophils # (A) 3.23 X 10*3/uL (1.80-7.70); Neutrophils % (A) 63.4 %; Platelet Count 265 X 10*3/uL (140-440); RBC 2.57 X 10*6/uL (4.10-5.20); RDW 13.5 % (11.5-14.5); WBC 5.09 X 10*3/uL (4.50-10.00)
[2022-12-03] MEDS ORDERED: SIMETHICONE 40 MG/0.6 ML DROPS 2,000 MG/30 ML BOTTLE PO ONE (09:15)
[2022-12-03 09:16] VITALS: RESP 15
[2022-12-03] MEDS: PANTOPRAZOLE 40 MG/10 ML VIAL IVP SCH (11:57)
[2022-12-03] MEDS ORDERED: ASPIRIN 81 MG PO SCH (13:15)
[2022-12-03] MEDS ORDERED: SODIUM FERRIC GLUCONAT-SUCROSE 125 MG in SODIUM CHLORIDE 0.9% 100 ML IVPB ONE (14:00)
[2022-12-03] MEDS: SERTRALINE 50 MG TAB PO SCH (14:46)
[2022-12-03] MEDS: METOPROLOL TARTRATE 25 MG TAB PO SCH (14:46)
[2022-12-03 15:39] VITALS: BP 138/78; PULSE 79; TEMP 97.4
--- NOTE | 2022-12-04 22:01 | P.DS ---
Providers Date of admission: 12/01/22 19:44 Attending physician: Jose Reaves MD Consults: 12/01/22 19:41 Consult Physician Routine Consulting Provider: Priyanka Guzman Consult Reason/Comments: Anemia, suspect GI bleed Do you want consulting provider notified?: Yes Primary care physician: Charu Pisano [facility] Course: Final Diagnosis Iron Deficiency Anemia exacerbated by aspirin/brilinta Fatigue and weakness secondary to above Mild acute kidney injury on admission improved with IV fluids Very small sliding type hiatal hernia found on EGD. Myocardial infarction with cardiac stent placed 6 months, has been continued on dual antiplatelet therapy History hypertension Gastroesophageal reflux disorder Daily alcohol use 2 glasses of wine Full Code Discharge Disposition Patient is stable for discharge home. Recommending to continue on protonix twice a day for 2 weeks and transition to protonix daily. Patient has been cleared to resume aspirin 81 mg daily and can resume brilinta on 12/04/2022. Patient has been started on oral ferrous sulfate BID for 30 days and to transition to daily iron supplementation after 30 days. Discussed staying on bowel regimen to avoid constipation. Recommend to follow up with Dr ROSE Liu regarding continuing on Brilinta therapy due to anemia and likely GI bleed. Follow up with PCP on discharge in 1 to 2 days and follow up with Dr Kolton Guzman in 1 to 2 weeks. Recom mend to repeat labs in 2 to 3 days. Hospital Course This is a 71 year old female with medical history of hypertension, GERD, hypothyroidism, coronary artery disease with prior stent placement 6 months ago. Presents to the hospital sent in by her PCP for abnormal labs was found to have hemoglobin of 6.9 outpatient. Patient denies any bright red rectal bleeding does report having some black colored stool reported as coffee ground in appearance. Patient states she has felt fatigued and weak which started shortly after her [place] in June of this year and being started on the dual antiplatelet therapy. Initial work up reveals hemoglobin of 7.3 which dropped to 6.5. Patient was admitted to the hospital with GI consultation recommending patient to undergo upper endoscopy. Patient received 1 unit of PRBCs. Iron studies reveal underlying iron deficiency anemia with low iron elevated TIBC and low normal Ferritin level. Patient received 1 dose of IV ferrlecit. Had mild SHERRY on admission creatinine 1.23 which is improving with hydration. Urinalysis normal. EGD reveals very small sliding type hiatal hernia with no evidence of esophagitis, gastritis, peptic ulcer disease or angiectasia. Patient underwent small bowel endoscopy and okay to discharge home afterwards and f/u with Dr. Kolton Guzman in the office to review results. Ok to resume aspirin on day of discharge and cleared by GI to resume Brilina on 12/04/22 recommending to follow up with cardiology about stopping and continuting on aspirin alone. Currently denying chest pain, denying shortness of breath. Tolerating diet. Lungs are clear S1 S2 auscultated abdomen is soft and nontender. Hemodynamically stable. Cleared for discharge with above mentioned recommendations. Please see medication reconciliation for a list of current medication. Thank you for allowing us to participate in the care of this patient. The impression and plan of care has been dictated by Aishwarya Min, Nurse Practitioner as directed. Dr. Anthony MD I have performed a history and physical examination and medical decision making of this patient, discussed the same with the dictator, and agree with the dictators assessment and plan as written, documented as a scribe. Based on total visit time, I have performed more than 50% of this visit. Patient Condition at Discharge: Stable Plan - Discharge Summary New Discharge Prescriptions: New Aspirin 81 mg PO DAILY tab Omeprazole 20 mg PO BID #60 tab Docusate [Colace] 100 mg PO BID PRN #60 capsule PRN Reason: Constipation Cyanocobalamin [Vitamin B-12] 500 mcg PO DAILY #30 tablet Ticagrelor [Brilinta] 90 mg PO BID #60 tab Ferrous Sulfate [Feosol] 325 mg PO BID #60 tab Continue Metoprolol Tartrate [Lopressor] 25 mg PO BID #60 tab Albuterol Sulfate [Albuterol Sulfate Hfa] 2 puff PO RT-QID PRN PRN Reason: Shortness Of Breath Losartan Potassium [Cozaar] 25 mg PO HS clonazePAM 1 mg PO TID PRN PRN Reason: Anxiety Levothyroxine Sodium [Synthroid] 175 mcg PO DAILY Sertraline [Zoloft] 50 mg PO DAILY Halobetasol Propionate [Ultravate 0.05%] 1 applic TOPICAL DAILY PRN PRN Reason: IRRITATION Atorvastatin [Lipitor] 80 mg PO HS #30 tab Nitroglycerin Sl Tabs [Nitrostat] 0.4 mg SUBLINGUAL Q5M PRN #25 tab PRN Reason: Chest Pain Discontinued Famotidine 20 mg PO BID Benazepril HCl 10 mg PO BID #0 Discharge Medication List Levothyroxine Sodium [Synthroid] 175 mcg PO DAILY 08/25/21 [History] clonazePAM 1 mg PO TID PRN 08/25/21 [History] Halobetasol Propionate [Ultravate 0.05%] 1 applic TOPICAL DAILY PRN 06/13/22 [History] Sertraline [Zoloft] 50 mg PO DAILY 06/13/22 [History] Atorvastatin [Lipitor] 80 mg PO HS #30 tab 06/16/22 [Rx] Metoprolol Tartrate [Lopressor] 25 mg PO BID #60 tab 06/16/22 [Rx] Nitroglycerin Sl Tabs [Nitrostat] 0.4 mg SUBLINGUAL Q5M PRN #25 tab 06/16/22 [Rx] Albuterol Sulfate [Albuterol Sulfate Hfa] 2 puff PO RT-QID PRN 12/01/22 [History] Losartan Potassium [Cozaar] 25 mg PO HS 12/01/22 [History] Aspirin 81 mg PO DAILY tab 12/03/22 [Rx] Cyanocobalamin [Vitamin B-12] 500 mcg PO DAILY #30 tablet 12/03/22 [Rx] Docusate [Colace] 100 mg PO BID PRN #60 capsule 12/03/22 [Rx] Ferrous Sulfate [Feosol] 325 mg PO BID #60 tab 12/03/22 [Rx] Omeprazole 20 mg PO BID #60 tab 12/03/22 [Rx] Ticagrelor [Brilinta] 90 mg PO BID #60 tab 12/03/22 [Rx] Follow up Appointment(s)/Referral(s): Regina Liu MD [STAFF PHYSICIAN] - 1 Week (Office stated they will call patient with appointment time and date.) Charu Pisano MD [Primary Care Provider] - 1-2 days (Office is closed at time of discharge. Please call for appointment.) Priyanka Guzman MD [STAFF PHYSICIAN] - 01/04/23 3:00 pm Ambulatory/Diagnostic Orders: Basic Metabolic Panel [LAB.AMB] Time Frame: 3 Days, Location: None Selected Complete Blood Count w/diff [LAB.AMB] Time Frame: 3 Days, Location: None Selected Patient Instructions/Handouts: Iron Rich Diet (DC), Iron Deficiency Anemia (GEN) Activity/Diet/Wound Care/Special Instructions: Continue on aspirin 81 mg daily and okay to resume brilinta 90 mg twice a day starting tomorrow 12/04/22 in the AM. Follow up with Dr ROSE Liu regarding the Brilinta and discuss need to continue on this medication or if can continue on single antiplatelet therapy with aspirin daily. Continue on oral iron tablets twice a day for the next month and can than transition to oral iron daily unless otherwise directed by your PCP. Iron can be constipating and also stool can appear dark/black in color due to the iron supplementation. Regarding to continue on a bowel regimen while taking this stomach. This medication can also upset your stomach/cause nausea recommending taking with crackers etc. Follow up labs in 2 to 3 days Follow up with Dr. Kolton Guzman in the office in 2 weeks Follow up your PCP in 1 to 2 days Discharge Disposition: HOME SELF-CARE
== END 2022-12-03 18:57 | disposition home or self-care (01) | DRG 812 ==
LOC: EC 15:08 → 4SSUR 19:44
PROVIDERS: ADMIT Internal Medicine; ATTEND Internal Medicine
PROC: 30233N1 Transfusion of Nonautologous Red Blood Cells into Peripheral Vein, Percutaneous Approach (ICD-10-PCS; 2022-12-02)
PROC: 0DJ08ZZ Inspection of Upper Intestinal Tract, Via Natural or Artificial Opening Endoscopic (ICD-10-PCS; principal; 2022-12-03 08:00)
DX: D62 Acute posthemorrhagic anemia (principal); N17.9 Acute kidney failure, unspecified; K92.1 Melena; I10 Essential (primary) hypertension; E03.9 Hypothyroidism, unspecified; D50.9 Iron deficiency anemia, unspecified; I25.10 Atherosclerotic heart disease of native coronary artery without angina pectoris; K44.9 Diaphragmatic hernia without obstruction or gangrene; K21.9 Gastro-esophageal reflux disease without esophagitis; F10.90 Alcohol use, unspecified, uncomplicated; K52.9 Noninfective gastroenteritis and colitis, unspecified; Z96.653 Presence of artificial knee joint, bilateral; Z95.5 Presence of coronary angioplasty implant and graft; Z79.82 Long term (current) use of aspirin; Z79.899 Other long term (current) drug therapy; Z79.890 Hormone replacement therapy; I25.2 Old myocardial infarction; Z87.19 Personal history of other diseases of the digestive system
CPT/HCPCS: 36415; 36573; 43235; 80048; 80053; 81001; 82272; 82607; 82728; 82746; 83540; 83550; 84466; 85025; 85610; 85730; 86850; 86900; 86901; 86920; 91110; 93005; 94640; 96361; 96374; 99284

== ENCOUNTER → 2023-05-11 | Outpatient (CLI) | payer MEDICARE, BC ==
--- NOTE | 2023-05-11 19:26 | BD ---
EXAMINATION TYPE: Axial Bone Density DATE OF EXAM: 05/11/2023 CLINICAL HISTORY: 72 years old Female. ICD-10 CODE: M85.9 Height: 64.2 Weight: 222 FRAX RISK QUESTIONS: Family History (Parent hip fracture): yes Glucocorticoids (More than 3mos): yes (Ex: prednisone, prednisolone, methylprednisolone, dexamethasone, and hydrocortisone). RISK FACTORS HISTORY OF: Postmenopausal woman: at 50, total hyst Hyperparathyroidism: no Adrenal Insufficiency: no MEDICATIONS: Prednisone or other steroids: yes, for chronic bronchitis Thyroid Medications: yes synthroid for about 20+ yrs Additional Medications: bp meds, thyroid, celebrex, zoloft, citalopram,reflux med, statin for cholest moisés, b12, Additional History: hypertension, thyroid, anxiety, cholesterol, reflux, EXAM MEASUREMENTS: Bone mineral densitometry was performed using the [employer] System. Bone mineral density as measured about the Lumbar spine is: ----- L1-L4(G/cm2): 1.487 T Score Values are as follows: ----- L1: 0.5 ----- L2: 3.3 ----- L3: 4.0 ----- L4: 2.4 ----- L1-L4: 2.6 Z Score Values are as follows: ----- L1: 1.0 ----- L2: 3.9 ----- L3: 4.6 ----- L4: 3.0 ----- L1-L4: 3.1 Bone mineral density has: Increased 1.6% since study of: 01.25.2020 Bone mineral density about the R hip (g/cm2): 0.863 Bone mineral density about the L hip (g/cm2): 0.890 T Score values are as follows: -----R Neck: -2.4 -----L Neck: -2.6 -----R Total: -1.1 -----L Total: -0.9 Z Score values are as follows: -----R Neck: -1.2 -----L Neck: -1.5 -----R Total: -0.3 -----L Total: -0.1 Bone mineral density has: Decreased -1.8% since study of: 01.25.2020 FRAX%s: The graph provided illustrates a 42.7% chance for a major osteoporotic fx and a 29.4% chance for the hips probability for fx in 10 years time. IMPRESSION: Osteoporosis (T Score less than -2.5). There is increased fracture risk and therapy is usually indicated based on age. Re-Screen 1-2 years. NOTE: T-SCORE=SD OF THE YOUNG ADULT MEAN.
--- NOTE | 2023-05-15 18:04 | MM ---
Reason for Exam: Screening (asymptomatic). Last mammogram was performed 2 year(s) and 6 month(s) ago. Patient History: Menarche at age 10. Patient has no children. Hysterectomy at age 46. Postmenopausal. Patient used Estrogen for 6 years. Mother had breast cancer, age 84. Risk Values: Anusha 5 year model risk: 3.5%. NCI Lifetime model risk: 7.9%. Prior Study Comparison: 10/14/2017 Bilateral Screening Mammogram, [facility]. 11/27/2018 Bilateral Screening Mammogram, [facility]. 11/17/2020 Bilateral Screening Mammogram, [facility]. Tissue Density: There are scattered fibroglandular densities. Findings: Analyzed By CAD. Chronic nodularity left breast. Additional unchanged global asymmetry upper outer quadrant of the left breast. There is no suspicious group of microcalcifications or new suspicious mass in either breast. Overall Assessment: Benign, BI-RAD 2 Management: Screening Mammogram of both breasts in 1 year. See note below in regards to patient's increased 5 year Anusha score. Patient should continue monthly self-breast exams. A clinical breast exam by your physician is recommended on an annual basis. This exam should not preclude additional follow-up of suspicious palpable abnormalities. Note on Anusha scores and lifetime risk: 1. A Anusha score greater than 3% is considered moderate risk. If this is the case, consider specialist referral to assess eligibility for a risk reducing agent. 2. If overall lifetime risk for the development of breast cancer is 20% or higher, the patient may qualify for future screening with alternating mammogram and breast MRI. Electronically signed and approved by: Jesus Mejia M.D. Radiologist
== END | disposition home or self-care (01) ==
LOC: RADMAMWWP 12:57
PROVIDERS: ATTEND Family Medicine
DX: Z12.31 Encounter for screening mammogram for malignant neoplasm of breast (principal); M85.851 Other specified disorders of bone density and structure, right thigh; M81.0 Age-related osteoporosis without current pathological fracture; Z78.0 Asymptomatic menopausal state; Z80.3 Family history of malignant neoplasm of breast
CPT/HCPCS: 77063; 77067; 77080

== ENCOUNTER 2023-11-09 07:01 | Emergency (ER) | payer MEDICARE, BC ==
--- NOTE | 2023-11-09 07:25 | ED ---
Back Pain HPI - General Chief Complaint: Back Pain/Injury Stated Complaint: Lower Back Pain Time Seen by Provider: 11/09/23 07:14 Source: patient, RN notes reviewed Mode of arrival: ambulatory Limitations: no limitations - History of Present Illness Initial Comments: This is a 72-year-old female who presents to the emergency department for back pain. States that it started a week ago. Denies any injuries. States that it is on the left side in the mid back. Denies any radiation of pain. She has started to develop nausea associated with this. States that the nausea primarily occurs in the morning. She did have an episode of vomiting this morni ng as well. Denies any history of kidney stones or similar pains in the past. She has tried going to the chiropractor and doing stretches without relief in symptoms. MD Complaint: back pain - Related Data Home Medications Medication Instructions Recorded Confirmed Levothyroxine Sodium [Synthroid] 175 mcg PO DAILY 08/25/21 12/01/22 clonazePAM 1 mg PO TID PRN 08/25/21 12/01/22 Halobetasol Propionate [Ultravate 1 applic TOPICAL DAILY PRN 06/13/22 12/01/22 0.05%] Sertraline [Zoloft] 50 mg PO DAILY 06/13/22 12/01/22 Albuterol Sulfate [Albuterol 2 puff PO RT-QID PRN 12/01/22 12/01/22 Sulfate Hfa] Losartan Potassium [Cozaar] 25 mg PO HS 12/01/22 12/01/22 Previous Rx's Medication Instructions Recorded Atorvastatin [Lipitor] 80 mg PO HS #30 tab 06/16/22 Metoprolol Tartrate [Lopressor] 25 mg PO BID #60 tab 06/16/22 Nitroglycerin Sl Tabs [Nitrostat] 0.4 mg SUBLINGUAL Q5M PRN #25 tab 06/16/22 Aspirin 81 mg PO DAILY tab 12/03/22 Cyanocobalamin [Vitamin B-12] 500 mcg PO DAILY #30 tablet 12/03/22 Docusate [Colace] 100 mg PO BID PRN #60 capsule 12/03/22 Ferrous Sulfate [Feosol] 325 mg PO BID #60 tab 12/03/22 Omeprazole 20 mg PO BID #60 tab 12/03/22 Ticagrelor [Brilinta] 90 mg PO BID #60 tab 12/03/22 Amoxic-Pot Clav 875-125Mg 1 tab PO BID 7 Days #14 tab 11/09/23 [Augmentin 875-125] Lidocaine 5% Patch [Lidoderm 5% 1 patch TOPICAL DAILY PRN #30 patch 11/09/23 Patch] Meloxicam [Mobic] 15 mg PO DAILY PRN #20 tab 11/09/23 methocarbamoL [Robaxin-750] 1,500 mg PO TID PRN #30 tab 11/09/23 Allergies Allergy/AdvReac Type Severity Reaction Status Date / Time No Known Allergies Allergy Verified 11/09/23 07:06 Review of Systems ROS Statement: Those systems with pertinent positive or pertinent negative responses have been documented in the HPI. ROS Other: All systems not noted in ROS Statement are negative. Past Medical History Past Medical History: GERD/Reflux, Hypertension, Thyroid Disorder Additional Past Medical History / Comment(s): low hgb 2022 Last Myocardial Infarction Date:: 06/2022 History of Any Multi-Drug Resistant Organisms: None Reported Past Surgical History: Heart Catheterization With Stent, Hysterectomy, Orthopedic Surgery Additional Past Surgical History / Comment(s): Bilateral partial knee replacements. Past Anesthesia/Blood Transfusion Reactions: No Reported Reaction Past Psychological History: No Psychological Hx Reported Smoking Status: Never smoker Past Alcohol Use History: Occasional Past Drug Use History: None Reported - Past Family History Mother Family Medical History: No Reported History General Exam Limitations: no limitations General appearance: alert, in no apparent distress Head exam: Present: atraumatic, normocephalic, normal inspection Respiratory exam: Present: normal lung sounds bilaterally. Absent: respiratory distress, wheezes, rales, rhonchi, stridor Cardiovascular Exam: Present: regular rate, normal rhythm, normal heart sounds. Absent: systolic murmur, diastolic murmur, rubs, gallop, clicks GI/Abdominal exam: Present: soft, normal bowel sounds. Absent: distended, tend erness, guarding, rebound, rigid Back exam: Present: CVA tenderness (L) Neurological exam: Present: alert, oriented X3, CN II-XII intact Psychiatric exam: Present: normal affect, normal mood Skin exam: Present: warm, dry, intact, normal color. Absent: rash Course Vital Signs 11/09/23 11/09/23 07:03 09:07 Temperature 97.9 F 98.5 F Pulse Rate 74 72 Respiratory 19 18 Rate Blood Pressure 191/85 175/73 O2 Sat by Pulse 96 97 Oximetry Medical Decision Making - Medical Decision Making This is a 72 year old female who presents to the emergency department for back pain. Was pt. sent in by a medical professional or institution? @ -No Did you speak to anyone other than the patient for history? @ -No Did you review nursing and triage notes? @ -Yes, and I agree, it is accurate with regards to the patient's symptoms. Were old charts reviewed? @ -No Differential Diagnosis? @ -Differential Back Pain: Strain, zoster, cauda equina syndrome, epidural abscess, vertebral osteomyelitis, discitis, fracture, subluxation, disc herniation, DJD, spinal stenosis, dissection, AAA, pancreatitis, peptic ulcer disease, pyelonephritis, kidney stone, this is not meant to be an all-inclusive list. EKG interpreted by me (3pts min.)? @ -Not obtained X-rays interpreted by me (1pt min.)? @ -Not obtained CT interpreted by me (1pt min.)? @ -CT scan of the abdomen and pelvis obtained. My interpretation identifies no evidence of a ureteral calculus. U/S interpreted by me (1pt. min.)? @ -Not obtained What testing was considered but not performed? (CT, X-rays, U/S, labs)? Why? @ -None What meds were considered but not given? Why? @ -None Did you discuss the management of the patient with other professionals? @ -No Did you reconcile home meds? @ -No Was smoking cessation discussed for >3mins.? @ -No Was critical care preformed (if so, how long)? @ -No Were there social determinants of health that impacted care today? How? (Homelessness, low income, unemployed, alcoholism, drug addiction, transportation, low edu. Level, literacy, decrease access to med. care, fci, rehab)? @ -No Was there de-escalation of care discussed even if they declined? (Discuss DNR or withdrawal of care, Hospice)? @ -No What co-morbidities impacted this encounter? (DM, HTN, Smoking, COPD, CAD, Cancer, CVA, Hep., AIDS, mental health diagnosis, sleep apnea, morbid obesity)? @ -None Was patient admitted / discharged? @ -Discharged. Lab work unremarkable. Urinalysis negative for signs of infection. CT scan of the abdomen and pelvis demonstrates diverticulosis with possible mild acute diverticulitis along the mid to distal sigmoid colon. She has circumferential bladder wall thickening that may be chronic. Urinalysis negative for signs of infection. There is a nonobstructive 6 mm left renal stone. Discussed that with this being contained within the kidney, it is unlikely to cause her any pain. Discussed the possibility of diverticulitis or a musculoskeletal problem contributing to her symptoms. Pain was managed in the emergency department. Will treat patient for possible diverticulitis with a prescription for Augmentin. Robaxin, Mobic, and lidocaine patches prescribed as well for possible musculoskeletal component. Advised follow-up with her primary care provider. Undiagnosed new problem with uncertain prognosis? @ -None Drug Therapy requiring intensive monitoring for toxicity (Heparin, Nitro, Insulin, Cardizem)? @ -None Were any procedures done? @ -None Diagnosis/symptom? @ -Abdominal pain, diverticulitis Acute, or Chronic, or Acute on Chronic? @ -Acute Uncomplicated (without systemic symptoms) or Complicated (systemic symptoms)? @ -Uncomplicated Side effects of treatment? @ -None Exacerbation, Progression, or Severe Exacerbation] @ -Not applicable Poses a threat to life or bodily function? @ -No Return precautions reviewed in depth, the patient is instructed to return to the emergency department with any new, worsening, or concerning symptoms. Patient verbalized understanding. This case was discussed in detail with the attending ED physician, Dr. Greenberg. Presentation, findings, and treatment plan discussed in detail as well. - Lab Data Result diagrams: 11/09/23 07:36 11/09/23 07:36 Lab Results 11/09/23 11/09/23 11/09/23 Range/Units 07:36 07:36 07:36 WBC 6.1 (3.8-10.6) k/uL RBC 4.12 (3.80-5.40) m/uL Hgb 13.2 (11.4-16.0) gm/dL Hct 40.4 (34.0-46.0) % MCV 98.0 (80.0-100.0) fL MCH 31.9 (25.0-35.0) pg MCHC 32.6 (31.0-37.0) g/dL RDW 13.0 (11.5-15.5) % Plt Count 250 (150-450) k/uL MPV 8.5 Neutrophils % 70 % Lymphocytes % 15 % Monocytes % 6 % Eosinophils % 7 % Basophils % 1 % Neutrophils # 4.3 (1.3-7.7) k/uL Lymphocytes # 0.9 L (1.0-4.8) k/uL Monocytes # 0.4 (0-1.0) k/uL Eosinophils # 0.4 (0-0.7) k/uL Basophils # 0.1 (0-0.2) k/uL Sodium 140 (137-145) mmol/L Potassium 4.8 (3.5-5.1) mmol/L Chloride 108 H (98-107) mmol/L Carbon Dioxide 28 (22-30) mmol/L Anion Gap 4 mmol/L BUN 16 (7-17) mg/dL Creatinine 0.94 (0.52-1.04) mg/dL Est GFR (CKD-EPI)AfAm 69 (>60 ml/min/1.73 sqM) Est GFR (CKD-EPI)NonAf 60 (>60 ml/min/1.73 sqM) Glucose 97 (74-99) mg/dL Plasma Lactic Acid Kole 0.8 (0.7-2.0) mmol/L Calcium 9.2 (8.4-10.2) mg/dL Total Bilirubin 0.9 (0.2-1.3) mg/dL AST 30 (14-36) U/L ALT 25 (4-34) U/L Alkaline Phosphatase 100 (38-126) U/L Troponin I (0.000-0.034) ng/mL Total Protein 6.6 (6.3-8.2) g/dL Albumin 4.1 (3.5-5.0) g/dL Amylase 64 (30-110) U/L Lipase 116 (23-300) U/L Urine Color Urine Appearance (Clear) Urine pH (5.0-8.0) Ur Specific [place] (1.001-1.035) Urine Protein (Negative) Urine Glucose (UA) (Negative) Urine Ketones (Negative) Urine Blood (Negative) Urine Nitrite (Negative) Urine Bilirubin (Negative) Urine Urobilinogen (<2.0) mg/dL Ur Leukocyte Esterase (Negative) Urine RBC (0-5) /hpf Urine WBC (0-5) /hpf Ur Squamous Epith Cells (0-4) /hpf Urine Bacteria (None) /hpf Urine Mucus (None) /hpf 11/09/23 11/09/23 Range/Units 07:36 08:18 WBC (3.8-10.6) k/uL RBC (3.80-5.40) m/uL Hgb (11.4-16.0) gm/dL Hct (34.0-46.0) % MCV (80.0-100.0) fL MCH (25.0-35.0) pg MCHC (31.0-37.0) g/dL RDW (11.5-15.5) % Plt Count (150-450) k/uL MPV Neutrophils % % Lymphocytes % % Monocytes % % Eosinophils % % Basophils % % Neutrophils # (1.3-7.7) k/uL Lymphocytes # (1.0-4.8) k/uL Monocytes # (0-1.0) k/uL Eosinophils # (0-0.7) k/uL Basophils # (0-0.2) k/uL Sodium (137-145) mmol/L Potassium (3.5-5.1) mmol/L Chloride (98-107) mmol/L Carbon Dioxide (22-30) mmol/L Anion Gap mmol/L BUN (7-17) mg/dL Creatinine (0.52-1.04) mg/dL Est GFR (CKD-EPI)AfAm (>60 ml/min/1.73 sqM) Est GFR (CKD-EPI)NonAf (>60 ml/min/1.73 sqM) Glucose (74-99) mg/dL Plasma Lactic Acid Koel (0.7-2.0) mmol/L Calcium (8.4-10.2) mg/dL Total Bilirubin (0.2-1.3) mg/dL AST (14-36) U/L ALT (4-34) U/L Alkaline Phosphatase (38-126) U/L Troponin I <0.012 (0.000-0.034) ng/mL Total Protein (6.3-8.2) g/dL Albumin (3.5-5.0) g/dL Amylase (30-110) U/L Lipase (23-300) U/L Urine Color Light Yellow Urine Appearance Cloudy H (Clear) Urine pH 6.5 (5.0-8.0) Ur Specific [place] 1.017 (1.001-1.035) Urine Protein Negative (Negative) Urine Glucose (UA) Negative (Negative) Urine Ketones Negative (Negative) Urine Blood Negative (Negative) Urine Nitrite Negative (Negative) Urine Bilirubin Negative (Negative) Urine Urobilinogen <2.0 (<2.0) mg/dL Ur Leukocyte Esterase Negative (Negative) Urine RBC 1 (0-5) /hpf Urine WBC <1 (0-5) /hpf Ur Squamous Epith Cells 13 H (0-4) /hpf Urine Bacteria Rare H (None) /hpf Urine Mucus Rare H (None) /hpf - Radiology Data Radiology results: report reviewed, image reviewed Disposition Clinical Impression: Back pain, Diverticulitis Disposition: HOME SELF-CARE Instructions (If sedation given, give patient instructions): Diverticulitis (ED), Back Pain (ED) Additional Instructions: Return to the emergency department with any new, worsening, or concerning symptoms. Take the antibiotic as prescribed for 7 days. Take the Mobic daily with Tylenol as needed for pain relief. Do not take any other anti- inflammatories such as ibuprofen if you choose to take the Mobic. You can take the Robaxin as 1 to 2 tablets up to 3-4 times daily. Be aware that this may make you drowsy. You can also apply the lidocaine patches daily. Follow up with your primary care provider in 1-2 days. Prescriptions: Amoxic-Pot Clav 875-125Mg [Augmentin 875-125] 1 tab PO BID 7 Days #14 tab Lidocaine 5% Patch [Lidoderm 5% Patch] 1 patch TOPICAL DAILY PRN #30 patch PRN Reason: Pain Meloxicam [Mobic] 15 mg PO DAILY PRN #20 tab PRN Reason: Pain methocarbamoL [Robaxin-750] 1,500 mg PO TID PRN #30 tab PRN Reason: Pain Is patient prescribed a controlled substance at d/c from ED?: No Referrals: Charu Pisano MD [Primary Care Provider] - 1-2 days Time of Disposition: 08:57
[2023-11-09] MEDS: SODIUM CHLORIDE 0.9% 1,000 ML IV STA (07:35)
[2023-11-09 07:45] LABS: Basophils # (A) 0.1 k/uL (0-0.2); Basophils % (A) 1 %; Eosinophils # (A) 0.4 k/uL (0-0.7); Eosinophils % (A) 7 %; HCT 40.4 % (34.0-46.0); HGB 13.2 gm/dL (11.4-16.0); Lymphocytes # (A) 0.9 k/uL (1.0-4.8); Lymphocytes % (A) 15 %; MCH 31.9 pg (25.0-35.0); MCHC 32.6 g/dL (31.0-37.0); Mean Platelet Volume 8.5; Monocytes # (A) 0.4 k/uL (0-1.0); Monocytes % (A) 6 %; Neutrophils # (A) 4.3 k/uL (1.3-7.7); Neutrophils % (A) 70 %; Platelet Count 250 k/uL (150-450); RBC 4.12 m/uL (3.80-5.40); WBC 6.1 k/uL (3.8-10.6)
[2023-11-09 07:56] LABS: ALT 25 U/L (4-34); AST 30 U/L (14-36); African American GFR (CKD) 69 (>60 ml/min/1.73 sqM); Albumin 4.1 g/dL (3.5-5.0); Alkaline Phosphatase 100 U/L (38-126); Amylase 64 U/L (30-110); Anion Gap 4 mmol/L; Blood Urea Nitrogen 16 mg/dL (7-17); Calcium 9.2 mg/dL (8.4-10.2); Carbon Dioxide 28 mmol/L (22-30); Chloride 108 mmol/L (98-107); Glucose 97 mg/dL (74-99); Lipase 116 U/L (23-300); Non-African American GFR(CKD) 60 (>60 ml/min/1.73 sqM); Potassium 4.8 mmol/L (3.5-5.1); Sodium 140 mmol/L (137-145); Total Bilirubin 0.9 mg/dL (0.2-1.3); Total Protein 6.6 g/dL (6.3-8.2)
[2023-11-09] MEDS: KETOROLAC 15 MG/ML 1 ML VIAL IVP STA (08:11)
[2023-11-09] MEDS: LIDOCAINE 4% PATCH TOPICAL ONE (08:12)
--- NOTE | 2023-11-09 08:27 | CT ---
EXAMINATION TYPE: CT abdomen pelvis wo con DATE OF EXAM: 11/09/2023 COMPARISON: None HISTORY: 72-year-old female Left flank pain. No injury/hematuria. CT DLP: 1054.4 mGycm. Automated exposure control for dose reduction was used. TECHNIQUE: Contiguous axial scanning of the abdomen and pelvis without IV contrast. Coronal and sagit ro reconstructions performed. FINDINGS: Heart upper limits of normal in size. No pericardial effusion. Strandy atelectasis or scarring at the left base. No pleural effusion. Tiny hiatal hernia. Noncontrast appearance of the liver, gallbladder, adrenal glands, right kidney, spleen, and pancreas within normal limits. 6 mm nonobstructive left renal stone. No hydronephrosis on either side. Tiny fatty umbilical hernia. Mild atherosclerotic calcifications infrarenal abdominal aorta. No dilated small bowel, free fluid, or free air. No mesenteric or retroperitoneal lymphadenopathy. Normal appendix. Mild stool burden. Generalized colonic diverticulosis, greatest in the sigmoid colon . There may be very minimal focal pericolonic fat stranding along the mid to distal sigmoid colon, axia l images 109 through 112. Bladder nondistended but with some circumferential wall thickening and possible mild perivesicular fa t stranding. Uterus surgically absent. Both ovaries are visualized. No abnormal fluid collection in t he pelvis or pelvic lymphadenopathy. Bones: Mild degenerative change at the hips. 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 Degenerative grade 1 anterolisthesis L 4-L5. IMPRESSION: 1. Colonic diverticulosis with possible mild acute diverticulitis along the mid to distal sigmoid col on. No abscess or free air. 2. Circumferential bladder wall thickening may be chronic for the patient. Correlate to exclude cysti tis. 3. Nonobstructive 6 mm left renal stone.
[2023-11-09 08:39] LABS: Appearance,Urine Cloudy (Clear); Bacteria,Urine Rare /hpf; Bilirubin,Urine Negative (Negative); Blood,Urine Negative (Negative); Color,Urine Light Yellow; Glucose,Urine (UA) Negative (Negative); Ketones,Urine Negative (Negative); Leukocyte Esterase,Urine Negative (Negative); Mucus,Urine Rare /hpf; Nitrite,Urine Negative (Negative); PH, Urine 6.5 (5.0-8.0); Protein,Urine Negative (Negative); RBC,Urine 1 /hpf (0-5); Specific Gravity,Urine 1.017 (1.001-1.035); Squamous Epithelial Cell,Urine 13 /hpf (0-4); Urobilinogen,Urine <2.0 mg/dL (<2.0); WBC,Urine <1 /hpf (0-5)
[2023-11-09] MEDS: ONDANSETRON 4 MG ODT STARTER PACK 2 TAB BTL PO STA (09:01)
[2023-11-09] MEDS: ACET/COD 300 MG/30 MG STARTER PACK 6 TAB BTL PO STA (09:01)
[2023-11-09 09:09] VITALS: BP 175/73; PULSE 72; RESP 18; TEMP 98.5
== END 2023-11-09 09:09 | disposition home or self-care (01) ==
LOC: EC 07:01
DX: K57.30 Diverticulosis of large intestine without perforation or abscess without bleeding (principal); M54.50 Low back pain, unspecified
CPT/HCPCS: 36415; 80053; 82150; 83605; 83690; 84484; 85025; 81001; 74176; 99284; 96374; 96361; J1885; S0119

== ENCOUNTER → 2024-08-20 | Outpatient (CLI) | payer MEDICARE, BC ==
--- NOTE | 2024-08-20 07:56 | MM ---
Reason for Exam: Clinical finding. Last mammogram was performed 1 year(s) and 3 month(s) ago. Indicated Problems: Lump or thickening of the right side for 2 Month(s). Patient History: Menarche at age 10. Patient has no children. Hysterectomy at age 46. Postmenopausal. Patient used Estrogen for 6 years. Mother had breast cancer, age 84. Risk Values: Anusha 5 year model risk: 3.5%. NCI Lifetime model risk: 7.4%. Prior Study Comparison: 10/14/2017 Bilateral Screening Mammogram, [facility]. 11/27/2018 Bilateral Screening Mammogram, [facility]. 11/17/2020 Bilateral Screening Mammogram, [facility]. 05/11/2023 Bilateral MG 3D screening mammo w/cad, [facility]. Tissue Density: There are scattered areas of fibroglandular density. Findings: Analyzed By CAD. Stable 14 mm circumscribed mass in the left breast middle depth upper outer quadrant. Benign-appearing left axillary lymph nodes are redemonstrated. No obvious new mass or suspicious cluster of microcalcifications seen bilaterally. Overall Assessment: Incomplete: need additional imaging evaluation, BI-RAD 0 Management: Diagnostic Breast Ultrasound of the right breast. Palpable abnormality right breast. Results were given to the patient verbally at the time of exam. Patient should continue monthly self-breast exams. A clinical breast exam by your physician is recommended on an annual basis. This exam should not preclude additional follow-up of suspicious palpable abnormalities. Note on Anusha scores and lifetime risk: 1. A Anusha score greater than 3% is considered moderate risk. If this is the case, consider specialist referral to assess eligibility for a risk reducing agent. 2. If overall lifetime risk for the development of breast cancer is 20% or higher, the patient may qualify for future screening with alternating mammogram and breast MRI. [facility], , 08/20/2024 7:54 AM. Electronically signed and approved by: Tony Hilliard M.D.
--- NOTE | 2024-08-20 08:16 | USB ---
Reason for Exam: Clinical finding. Patient History: Menarche at age 10. Patient has no children. Hysterectomy at age 46. Postmenopausal. Patient used Estrogen for 6 years. Mother had breast cancer, age 84. Risk Values: Anusha 5 year model risk: 3.5%. NCI Lifetime model risk: 7.4%. Technique: Method: Targeted. Prior Study Comparison: 11/27/2018 Bilateral Screening Mammogram, [facility]. 11/17/2020 Bilateral Screening Mammogram, [facility]. 05/11/2023 Bilateral MG 3D screening mammo w/cad, [facility]. Findings: The area of palpable concern of the right breast, the axilla of the right breast and the retroareolar of the right breast were scanned. Targeted ultrasound shows no worrisome solid or cystic mass or abnormal fluid collection. Overall Assessment: Negative, BI-RAD 1 Management: Screening Mammogram of both breasts in 1 year. Managed palpable clinically. A clinical breast exam by your physician is recommended on an annual basis and results should be correlated with mammographic findings. This exam should not preclude additional follow-up of suspicious palpable abnormalities. Results were given to the patient verbally at the time of exam. [facility], , 08/20/2024 8:13 AM. Electronically signed and approved by: Tony Hilliard M.D.
== END | disposition home or self-care (01) ==
LOC: RADMAMWWP 07:24
PROVIDERS: ATTEND Family Medicine
DX: N63.15 Unspecified lump in the right breast, overlapping quadrants (principal); Z78.0 Asymptomatic menopausal state; Z80.3 Family history of malignant neoplasm of breast
CPT/HCPCS: 77066; 76642; G0279; 77062